=== PATIENT | male | born 1940 | race Caucasian/White ===

== ENCOUNTER 2017-04-13 01:17 | Emergency (ER) | payer MEDICARE, OTHER | END 2017-04-13 01:31 | disposition left against medical advice (07) | LOC: ERS 01:17 | DX: Z53.21 Procedure and treatment not carried out due to patient leaving prior to being seen by health care provider (principal) ==

== ENCOUNTER 2017-04-13 01:36 | Emergency (ER) | payer MEDICARE, OTHER | END 2017-04-13 02:38 | disposition home or self-care (01) | LOC: SCSER 01:36 | DX: J10.1 Influenza due to other identified influenza virus with other respiratory manifestations (principal); I10 Essential (primary) hypertension; G47.30 Sleep apnea, unspecified; Z79.899 Other long term (current) drug therapy | CPT/HCPCS: 87804; 99283 ==

== ENCOUNTER 2019-01-13 08:00 | Outpatient (CLI) | payer MEDICARE, OTHER ==
[2019-01-13 11:51] LABS: Hemoglobin 15.1 g/dL (14.0-18.0); Mean Corpuscular HGB CONC 31.8 g/dL (32.0-36.0); Mean Corpuscular Hemoglobin 29.5 pg (27.0-31.0); Mean Corpuscular Volume 92.6 fL (78.0-98.0); Mean Platelet Volume 8.8 fL (7.4-10.4); Platelet Count 267 thou/uL (130-400); RBC Distribution Width 13.9 % (11.5-14.5); Red Blood Cell (RBC) Count 5.14 mill/uL (4.70-6.10); White Blood Cell (WBC) Count 7.2 thou/uL (4.8-10.8)
[2019-01-13 12:16] LABS: Anion Gap 14 mmol/L (10-20); BUN (Urea Nitrogen) 19 mg/dL (8.4-25.7); Calc. Creatinine Clearance 0 mL/min (70-130); Calcium 9.5 mg/dL (7.8-10.44); Carbon Dioxide 29 mmol/L (23-31); Chloride 99 mmol/L (98-107); Estimated GFR-MDRD Greater than 90; Glucose 89 mg/dL (83-110); Potassium 3.9 mmol/L (3.5-5.1); Sodium 138 mmol/L (136-145)
== END 2019-01-13 08:01 | disposition home or self-care (01) ==
LOC: LABBT 08:00
PROVIDERS: ATTEND Orthopaedic Surgery
DX: Z01.818 Encounter for other preprocedural examination (principal); M65.4 Radial styloid tenosynovitis [de Quervain]
CPT/HCPCS: 80048; 85027; 93005; 93010

== ENCOUNTER 2019-01-14 13:11 | Day surgery (SDC) | payer MEDICARE, OTHER ==
[2019-01-13 10:32] VITALS: BMI 33.2
[2019-01-14] MEDS ORDERED: Fentanyl 100 MCG/2 ML VIAL ONE (18:07)
[2019-01-14] MEDS ORDERED: Neomycin-Polymyxin 1 ML AMP ONE (18:11)
[2019-01-14] MEDS ORDERED: Bupivacaine HCl 0.5%/Epinephrine 1:200,000/PF 30 ml Vial ONE (18:11)
--- NOTE | 2019-01-14 22:33 | OP ---
DATE OF PROCEDURE: 01/14/2019 PREOPERATIVE DIAGNOSES: 1. Right de Quervain tenosynovitis. 2. Left ring trigger finger. POSTOPERATIVE DIAGNOSES: 1. Right de Quervain tenosynovitis. 2. Left ring trigger finger with small ganglion cyst and early Dupuytren's. PROCEDURES PERFORMED: 1. Right de Quervain release. 2. Left ring finger release with excision of small ganglion cyst and removal of Dupuytren's tissue over the palm to the ring finger. ANESTHESIA: General. TECHNIQUE: The patient was given preoperative IV antibiotics, taken to operating room, placed in supine position. Satisfactory general anesthesia was performed. The right hand and wrist sterilely prepped and draped in usual fashion. After exsanguination, tourniquet at the right forearm was raised to 250 mmHg. A longitudinal incision was made over the first dorsal compartment over the wrist. The superficial radial nerve branches were located and retracted carefully all the way. The first dorsal compartment was located, entered with tenotomy scissors and the first dorsal compartment was released. The compartment was extremely tight with the 2 tendons. After the release, the tendons were completely released. The wound was then irrigated with antibiotic solution and closed using 3-0 Rapide. 10 mL of 0.5% Marcaine with epinephrine was utilized and a sterile dressing was applied. Tourniquet was released. Attention was then turned to the left hand and wrist, which was sterilely prepped and draped. After exsanguination, tourniquet at the left forearm was raised to 250 mmHg. There was early Dupuytren's scar tissue in the palm of the hand over the A1 primitivo level, so a longitudinal incision was made approximately 2 cm in length. Blunt dissection was made and the Dupuytren's scar tissue was excised. The underlying neurovascular structures were identified and left intact. The A1 primitivo was located and there was a small ganglion cyst also from the flexor tendon sheath. The A1 primitivo was divided and the small ganglion cyst was excised as well. The underlying flexor tendons were in good condition. The wound was copiously irrigated with antibiotic solution and closed using 3-0 Rapide. 10 mL of 0.5% Marcaine with epinephrine was used to infiltrate the area for postoperative analgesia. Sterile dressing was applied. Tourniquet was released. The patient was then awakened, extubated, and transferred to recovery room in stable condition. ESTIMATED BLOOD LOSS: None. COMPLICATIONS: None. TOURNIQUET TIME: On the right was 6 minutes, on the left was 9 minutes. DISCHARGE MEDICATION: Tylenol No. 3 one every 4-6 hours as needed for pain #40 with 1 refill. FOLLOWUP: Follow up in my office in 1 week. Job ID: [id number]
== END 2019-01-14 21:06 | disposition home or self-care (01) ==
LOC: SDC 13:11
PROVIDERS: ATTEND Orthopaedic Surgery
PROC: 0LN50ZZ Release Right Lower Arm and Wrist Tendon, Open Approach (ICD-10-PCS; principal; 2019-01-14)
PROC: 0LN80ZZ Release Left Hand Tendon, Open Approach (ICD-10-PCS; 2019-01-14)
DX: M65.4 Radial styloid tenosynovitis [de Quervain] (principal); M72.0 Palmar fascial fibromatosis [Dupuytren]; M65.342 Trigger finger, left ring finger
CPT/HCPCS: J0670; J0690; J3010

== ENCOUNTER 2019-03-28 18:23 | Emergency (ER) | payer MEDICARE, OTHER ==
[2019-03-28 18:54] LABS: #Eosinphils 0.3 thou/uL (0.0-0.7); #Lymphocytes 2.3 thou/uL (1.20-3.40); #Monocytes 0.9 thou/uL (0.11-0.59); #Neutrophils 5.3 thou/uL (1.40-6.50); %Basophils 0.5 % (0.0-1.0); %Eosinophils 3.9 % (0.0-10.0); %Lymphocytes 25.7 % (21.0-51.0); %Neutrophils 59.9 % (42.0-75.0); Mean Corpuscular HGB CONC 34.7 g/dL (32.0-36.0); Mean Corpuscular Hemoglobin 32.1 pg (27.0-31.0); Mean Corpuscular Volume 92.5 fL (78.0-98.0); Platelet Count 248 thou/uL (130-400); RBC Distribution Width 13.5 % (11.5-14.5); Red Blood Cell (RBC) Count 4.67 mill/uL (4.70-6.10); White Blood Cell (WBC) Count 8.8 thou/uL (4.8-10.8)
[2019-03-28 19:11] LABS: ALT (SGPT) 17 U/L (8-55); AST (SGOT) 19 U/L (5-34); Albumin 4.2 g/dL (3.4-4.8); Alkaline Phosphatase 92 U/L (40-110); Anion Gap 15 mmol/L (10-20); BUN (Urea Nitrogen) 16 mg/dL (8.4-25.7); Bilirubin, Total 0.3 mg/dL (0.2-1.2); Calc. Creatinine Clearance 0 mL/min (70-130); Calcium 9.3 mg/dL (7.8-10.44); Carbon Dioxide 27 mmol/L (23-31); Chloride 101 mmol/L (98-107); Estimated GFR-MDRD Greater than 90; Globulin 2.9 g/dL (2.4-3.5); Glucose 95 mg/dL (83-110); Protein, Total 7.1 g/dL (5.8-8.1); Sodium 139 mmol/L (136-145)
--- NOTE | 2019-03-28 19:27 | RAD ---
PA AND LATERAL VIEWS CHEST: Date: 03/28/2019 HISTORY: Flu, cough, cold, congestion. FINDINGS: Comparison made with exam of 08/05/05. The heart size is normal. The lungs are hypoexpanded. No lobar consolidation, pneumothoraces, or pleu ral effusions are seen. There are degenerative changes in the spine. IMPRESSION: No acute process. POS: [facility]
== END 2019-03-28 21:45 | disposition home or self-care (01) ==
LOC: ERS 18:23
DX: J06.9 Acute upper respiratory infection, unspecified (principal); I10 Essential (primary) hypertension; G47.30 Sleep apnea, unspecified; Z79.899 Other long term (current) drug therapy
CPT/HCPCS: 36415; 71046; 80053; 85025; 87804

== ENCOUNTER 2019-07-12 09:38 | Inpatient (IN) | payer MEDICARE, OTHER ==
[2019-07-12] MEDS ORDERED: Iopamidol 370 76% 100 ML VIAL ONE (10:14)
[2019-07-12 10:17] LABS: #Eosinphils 0.2 thou/uL (0.0-0.7); #Lymphocytes 1.3 thou/uL (1.20-3.40); #Monocytes 0.7 thou/uL (0.11-0.59); #Neutrophils 4.1 thou/uL (1.40-6.50); %Basophils 0.3 % (0.0-1.0); %Eosinophils 2.5 % (0.0-10.0); %Lymphocytes 20.3 % (21.0-51.0); %Monocytes 11.5 % (0.0-10.0); %Neutrophils 65.4 % (42.0-75.0); Hemoglobin 14.4 g/dL (14.0-18.0); Mean Corpuscular HGB CONC 31.5 g/dL (32.0-36.0); Mean Corpuscular Volume 91.9 fL (78.0-98.0); Mean Platelet Volume 8.4 fL (7.4-10.4); Platelet Count 281 thou/uL (130-400); RBC Distribution Width 13.1 % (11.5-14.5); Red Blood Cell (RBC) Count 4.96 mill/uL (4.70-6.10); White Blood Cell (WBC) Count 6.3 thou/uL (4.8-10.8)
[2019-07-12 10:39] LABS: ALT (SGPT) 16 U/L (8-55); AST (SGOT) 16 U/L (5-34); Albumin 4.3 g/dL (3.4-4.8); Alkaline Phosphatase 74 U/L (40-110); Anion Gap 12 mmol/L (10-20); BUN (Urea Nitrogen) 21 mg/dL (8.4-25.7); Bilirubin, Total 0.3 mg/dL (0.2-1.2); Calc. Creatinine Clearance 0 mL/min (70-130); Calcium 9.7 mg/dL (7.8-10.44); Carbon Dioxide 27 mmol/L (23-31); Chloride 100 mmol/L (98-107); Estimated GFR-MDRD Greater than 90; Globulin 2.9 g/dL (2.4-3.5); Glucose 112 mg/dL (83-110); Potassium 4.2 mmol/L (3.5-5.1); Protein, Total 7.2 g/dL (5.8-8.1); Sodium 135 mmol/L (136-145)
--- NOTE | 2019-07-12 11:03 | RAD ---
CHEST 1 VIEW: HISTORY: Cough and shortness of breath. COMPARISON: 03/28/2019. FINDINGS: Stable very poor inspiratory effort bilaterally with some minimal increased linear and interstitial m arkings in the bases probably related to chronic under inflation. The upper lung zones appear clear. Heart size is within normal limits. IMPRESSION: Stable chest with marked decreased aeration and chronic bibasilar parenchymal changes without new pro cess. POS: [facility]
[2019-07-12] MEDS ORDERED: Aspirin Chewable 81 MG TAB ONE (12:43)
--- NOTE | 2019-07-12 13:18 | CT ---
CTA OF THE THORAX UTILIZING IV CONTRAST AND PE PROTOCOL AND 3D REFORMATTED IMAGING: INDICATION: History of shortness of breath upon exertion; worsening over the last week with intermittent chest ti ghtness and a nonproductive cough. COMPARISON: None. FINDINGS: No central or segmental pulmonary embolus is present. There are areas of patchy subsegmental volume loss involving both lower lobes. No airspace consolidation is evident. No pleural effusion or pneum othorax is demonstrated. There are calcified lymph nodes within the left hilar region. There are va scular calcifications involving the thoracic aorta. There is bilateral male gynecomastia. Visualize d upper abdomen demonstrates cholecystectomy clips in the right upper quadrant. There is partially i mayank hyperdense lesion involving the superior pole of the left kidney measuring 3.3 cm. An addition al 3.4 cm hypodense lesion involving the superior pole of the left kidney that is partially imaged. There is slight prominence of both adrenal glands, some of which may be related to hypertrophy. This cannot be further characterized on the current examination. There is scattered degenerative and ost eoarthritic change. No acute osseous abnormality is evident. IMPRESSION: 1. No central or segmental pulmonary embolus demonstrated. 2. Nonspecific mild subsegmental volume loss involving both lower lobes. 3. Partially imaged lesions involving the superior pole left kidney. Followup renal ultrasound may be helpful for improved characterization. 4. Cholecystectomy. 5. Bilateral prominence of both adrenal glands is not well evaluated. A followup CT of the abdomen utilizing adrenal mass protocol may be helpful for improved characterization. POS: [facility]
[2019-07-12 14:10] LABS: Troponin I Less than 0.010 ng/mL (< 0.028)
[2019-07-12] MEDS ORDERED: Nitroglycerin 0.4 MG TAB (25 Tab Bottle) PO PRN (14:50)
[2019-07-12 15:08] VITALS: BMI 33.8
--- NOTE | 2019-07-12 16:54 | HP ---
PRIMARY CARE PHYSICIAN: Dr. Diego Barrera. CHIEF COMPLAINT: Dyspnea on exertion. HISTORY OF PRESENT ILLNESS: This is an 79-year-old man with a history of 1-1/2 weeks of dyspnea on exertion. The patient reports that he typically gets out of the gym and exercises regularly and does not have any problems with dyspnea. Then about a week and a half ago, he has been having significant dyspnea on exertion, especially when he goes up and down stairs. This is occasionally associated with central substernal chest burning pain. The symptoms relieved with rest. He has had a little bit of a cough on and off, but not productive. No fevers, no chills. No sore throat. He has had a little bit of allergic congestion of his sinuses and nose, which is a seasonal. He has no known Covid contacts. REVIEW OF SYSTEMS: CONSTITUTIONAL: See HPI. EYES: No double vision or blurred vision. ENT: See HPI. CARDIOVASCULAR: See HPI. No palpitations or racing heart. PULMONARY: See HPI. GASTROINTESTINAL: No abdominal pain. No nausea or vomiting. No diarrhea or constipation. GENITOURINARY: No dysuria or hematuria. MUSCULOSKELETAL: No muscle aches or joint pain. SKIN: No rashes or lesions. NEUROLOGIC: No numbness, tingling, or focal weakness. PAST MEDICAL HISTORY: Hypertension. PAST SURGICAL HISTORY: 1. Bladder cancer, resolved with surgery. 2. Gallbladder removal. 3. Left knee replacement. 4. Hand surgery for carpal tunnel syndrome. 5. Bilateral cataract surgery. 6. Sleep apnea. SOCIAL HISTORY: The patient is a former smoker, quit smoking 30 years ago. He drinks very rare alcohol. No illicit drugs. He is . His roommate's is his medical power of defense attorney, her name is Toshia Montano. FAMILY HISTORY: Dad had a stroke in his 50s and at 64. Mother had heart failure and at age of 74. ALLERGIES: NO KNOWN DRUG ALLERGIES. CURRENT MEDICATIONS: 1. Hydrochlorothiazide 25 mg daily. 2. Omeprazole 40 mg daily. 3. Norvasc 5 mg daily. 4. Singulair 10 mg daily. PHYSICAL EXAMINATION: VITAL SIGNS: Blood pressure 121/57, pulse 69, respirations 16, O2 saturation 95% on room air, temperature 98.3. GENERAL: This is a well-developed, obese white male, in no acute distress. HEENT: Pupils are equal, round, and reactive to light. Oropharynx clear without lesions, erythema, or exudate. NECK: Supple. No lymphadenopathy. No thyroid nodules or enlargement. HEART: Regular rate and rhythm. No murmurs, rubs, or gallops. LUNGS: Clear to auscultation bilaterally. No wheezes, crackles, or rhonchi. ABDOMEN: Soft, nontender to palpation. Normoactive bowel sounds. No hepatosplenomegaly or other masses. EXTREMITIES: No clubbing, cyanosis, or edema. SKIN: No rashes or lesions noted. NEUROLOGIC: The patient moves all extremities equally. No facial droop. PSYCHIATRIC: Alert and orient x3. Normal mood and affect. LABORATORY DATA: White blood cell count, hemoglobin, hematocrit, and platelet counts all normal. Complete metabolic panel is notable for a sodium of 135 and a glucose of 112. The rest was normal. Troponin is negative x2. Brain natriuretic peptide was negative at 90. Chest x-ray, I did review the chest x-ray done in the emergency room along with the radiologist's report. It does show decreased aeration and chronic bibasilar parenchymal changes, overall stable from previous chest x-rays. No acute cardiopulmonary process. CT scan with contrast done in the emergency room shows no evidence for pulmonary embolism. There is nonspecific mild subsegmental volume loss involving both lower lobes. A partially imaged lesion of the left kidney. Cholecystectomy, and a prominence of bilateral adrenal glands. ASSESSMENT: 1. Dyspnea and chest pain on exertion, concerning for angina. We will get a nuclear medicine stress test in the morning. We will also get an echocardiogram. 2. Hypertension, resume the patient's home medications. 3. Obstructive sleep apnea. 4. Gastrointestinal prophylaxis, continue patient's PPI. 5. Deep venous thrombosis prophylaxis, the patient on Lovenox while in the hospital. CODE STATUS: The patient is a full code. His medical decision maker is Toshia Montano. Job ID: [id number]
[2019-07-12 17:57] LABS: Troponin I Less than 0.010 ng/mL (< 0.028)
[2019-07-12] MEDS: Montelukast Sodium 10 mg Tablet PO SCH (20:35)
[2019-07-13 04:58] LABS: Cardiac Risk 4.1 (Less than 4.5)
--- NOTE | 2019-07-13 07:31 | PDOC.HOSPP ---
- Subjective Encounter Date: 07/13/19 Encounter Time: 11:30 Subjective: Patient with persistent MIRANDA. No chest pain. Just back from stress test. ECHO pending. Had trouble sleeping last night without his CPAP. No other complaints. - Objective Vital Signs & Weight: Vital Signs (12 hours) Temp Pulse Resp BP Pulse Ox 07/13/19 03:37 97.9 F 65 18 115/59 L 93 L 07/13/19 00:26 95 07/12/19 23:25 65 131/72 07/12/19 19:41 98.0 F 79 14 144/62 H 95 Weight Weight 231 lb 0.5 oz I&O: 07/12/19 07/13/19 07/14/19 06:59 06:59 06:59 Intake Total 990 Output Total 1275 Balance -285 Result Diagrams: 07/12/19 10:05 07/12/19 10:05 Hospitalist ROS - Review of Systems Constitutional: denies: fever, chills Respiratory: reports: SOB with excertion. denies: cough, shortness of breath Cardiovascular: denies: chest pain, palpitations Gastrointestinal: denies: nausea, vomiting, abdominal pain - Medication Medications: Active Medications Generic Name Dose Route Start Last Admin Trade Name Freq PRN Reason Stop Dose Admin Montelukast Sodium 10 mg 07/12/19 21:00 07/12/19 20:35 Singulair PO 10 mg HS DOT Administration - Exam General Appearance: NAD, awake alert ENT: moist mucosa Heart: RRR, no murmur, no gallops, no rubs Respiratory: CTAB, no wheezes, no rales, no ronchi Gastrointestinal: soft, non-tender, non-distended, normal bowel sounds Psychiatric: normal affect, normal behavior, A&O x 3 Hosp A/P (1) Dyspnea on exertion Code(s): R06.00 - DYSPNEA, UNSPECIFIED Status: Acute (2) Chest pain Code(s): R07.9 - CHEST PAIN, UNSPECIFIED Status: Acute (3) Hypertension Code(s): I10 - ESSENTIAL (PRIMARY) HYPERTENSION Status: Chronic Qualifiers: Hypertension type: essential hypertension Qualified Code(s): I10 - Essential (primary) hypertension (4) CHARLES (obstructive sleep apnea) Code(s): G47.33 - OBSTRUCTIVE SLEEP APNEA (ADULT) (PEDIATRIC) Status: Chronic - Plan Stress test today ECHO pending Lipid profile ok DVT proph: Lovenox GI proph: Protonix
[2019-07-13] MEDS ORDERED: Enoxaparin Sodium 40 MG/0.4 ML SYRINGE SC SCH (09:00)
[2019-07-13] MEDS ORDERED: ADENOSINE 60 MG/20 ML VIAL ONE (09:55)
--- NOTE | 2019-07-13 13:31 | NM ---
EXAM: NM Cardiac Stress W EF WF PROVIDED CLINICAL HISTORY: Dyspnea on exertion and chest pain while taking stairs. COMPARISON: None FINDINGS: There is diminished uptake of radiotracer seen in the inferolateral left ventricular wall and at the apex with suggestion of mild reversibility on resting acquisition compared to the stress acquisition. Quantitative analysis also demonstrates reversible defects in these regions. Gated image s show normal ventricular wall motion with mildly diminished thickening in the inferior left ventricular wall. The calculated left ventricular ejection fraction is 50%. IMPRESSION: 1. Abnormal myocardial perfusion study with findings suggestive of ischemia involving the inferolater al left ventricular wall and at the apex. 2. LVEF of 50%.
[2019-07-13] MEDS: Amlodipine 5 MG TAB PO SCH (15:14)
[2019-07-13] MEDS: Aspirin 325 mg Enteric Coated Tablet PO SCH (15:14)
[2019-07-13] MEDS: Hydrochlorothiazide 25 MG TAB PO SCH (15:14)
--- NOTE | 2019-07-13 15:37 | CON ---
DATE OF CONSULTATION: 07/13/2019 REASON FOR CONSULTATION: Abnormal stress study and shortness of breath. Dr. Diego Barrera is his primary provider. HISTORY OF PRESENT ILLNESS: Mr. Lee is a very pleasant 79-year-old gentleman with previous history of tobacco use, who recently presented with acute-onset shortness of breath. This occurred in the last several days. No chest pain or pressure. He does have risk factors for underlying coronary artery disease. He underwent a noninvasive stress study and it was felt to be positive for ischemia. PAST MEDICAL HISTORY: Hypertension, cholecystectomy, knee surgery, hand surgery, sleep apnea. CURRENT MEDICATIONS: Include hydrochlorothiazide, omeprazole, Norvasc, Singulair. ALLERGIES: NONE. FAMILY HISTORY: Positive for CAD. REVIEW OF SYSTEMS: A 10-point review of systems is reviewed and is as above, otherwise negative. PHYSICAL EXAMINATION: GENERAL: Patient is a pleasant male, who is in no acute distress. The patient appears their stated age. VITAL SIGNS: Blood pressure 142/74, pulse 68, temp 98.1. NEUROLOGIC: The patient is alert and oriented x3 with no focal neurologic deficits. HEENT: Sclerae without icterus. Mouth has moist mucous membranes with normal pallor. NECK: No JVD. Carotid upstroke brisk. No bruits bilaterally. LUNGS: Clear to auscultation with unlabored respirations. BACK: No scoliosis or kyphosis. CARDIAC: Regular rate and rhythm with normal S1 and S2. No S3 or S4 noted. No significant rubs, murmurs, thrills, or gallops noted throughout the precordium. PMI is not displaced. There is no parasternal heave. ABDOMEN: Soft, nontender, nondistended. No peritoneal signs present. No hepatosplenomegaly. No abnormal striae. EXTREMITIES: 2+ femoral and 2+ dorsalis pedis pulses. No cyanosis, clubbing, or edema. SKIN: No gross abnormalities. PERTINENT LABS: Stable. Noninvasive stress study; LVEF 50%, ischemia present in the inferolateral wall and apex. IMPRESSION: 1. Acute-onset shortness of breath. 2. Abnormal stress study. RECOMMENDATIONS: I discussed several options with Mr. Lee. Discussed medical therapy, risk of proceeding with coronary angiography. After discussing risks and benefits of both, he opted to proceed with coronary angiography. I discussed the procedure in full detail with Mr. Lee and risks included but not limited to the following. I discussed the procedure in full detail with the patient. The risks of the procedure were also discussed. The risks of the procedure include but are not limited to the following: , stroke, [place], need for emergency surgery, loss of limb, bleeding, and infection, as well as a reaction to the dye causing kidney failure and needing long-term dialysis. I also discussed the risks of PCI to include all of the above including coronary dissection and perforation in addition to acute stent thrombosis and restenosis. All questions about the procedure were answered. Given the above, the patient agreed to proceed with coronary angiography and possible PCI. All questions were answered. I also discussed drug-coated versus nondrug-coated stent placement. There were no contraindications and we will proceed if needed. Further recommendations pending the above. Job ID: [id number]
[2019-07-13] MEDS ORDERED: Communication Order-Pharmacy FS SCH (18:15)
[2019-07-13] MEDS: Montelukast Sodium 10 mg Tablet PO SCH (21:20)
[2019-07-13] MEDS: ALPRAZolam 0.5 MG TAB PO SCH (21:20)
[2019-07-13] MEDS: Sodium Chloride 0.9% 1,000 ML IV SCH (21:20)
[2019-07-14] MEDS: Fish Oil 1,000 MG CAP PO SCH (05:50)
[2019-07-14] MEDS: Amlodipine 5 MG TAB PO SCH (05:50)
[2019-07-14] MEDS: Hydrochlorothiazide 25 MG TAB PO SCH (05:50)
[2019-07-14] MEDS: Aspirin 325 mg Enteric Coated Tablet PO SCH (05:50)
[2019-07-14] MEDS: Multivit, Therapeutic 1 TAB PO SCH (05:50)
[2019-07-14] MEDS: Sodium Chloride 0.9% 1,000 ML IV SCH ×4 (05:55→21:15)
--- NOTE | 2019-07-14 07:36 | PDOC.HOSPP ---
- Subjective Encounter Date: 07/14/19 Encounter Time: 10:30 Subjective: Patient with continued MIRANDA. No chest pain. Awaiting catheterization. - Objective Vital Signs & Weight: Vital Signs (12 hours) Temp Pulse Resp BP Pulse Ox 07/14/19 07:29 97.5 F L 66 16 138/77 93 L 07/14/19 05:50 68 07/14/19 03:15 97.7 F 68 18 130/70 94 L 07/14/19 01:12 94 L Weight Weight 230 lb 5.353 oz I&O: 07/13/19 07/14/19 07/15/19 06:59 06:59 06:59 Intake Total 990 540 Output Total 1275 420 Balance -285 120 Result Diagrams: 07/12/19 10:05 07/12/19 10:05 Hospitalist ROS - Review of Systems Constitutional: denies: fever, chills Respiratory: reports: SOB with excertion. denies: cough, shortness of breath Cardiovascular: denies: chest pain, palpitations Gastrointestinal: denies: nausea, vomiting, abdominal pain - Medication Medications: Active Medications Generic Name Dose Route Start Last Admin Trade Name Freq PRN Reason Stop Dose Admin Alprazolam 0.5 mg 07/13/19 21:00 07/13/19 21:20 Xanax PO 0.5 mg HS DOT Administration Amlodipine Besylate 5 mg 07/13/19 09:00 07/14/19 05:50 Norvasc PO 5 mg DAILY DOT Administration Aspirin 325 mg 07/13/19 09:00 07/14/19 05:50 Ecotrin PO 325 mg DAILY DOT Administration Fish Oil 1,000 mg 07/14/19 09:00 07/14/19 05:50 Fish Oil PO 1,000 mg DAILY DOT Administration Hydrochlorothiazide 25 mg 07/13/19 09:00 07/14/19 05:50 Hydrochlorothiazide PO 25 mg DAILY DOT Administration Sodium Chloride 1,000 mls @ 100 mls/hr 07/13/19 18:15 07/14/19 05:55 Normal Saline 0.9% IV 1,000 mls .Q10H DOT Administration Montelukast Sodium 10 mg 07/12/19 21:00 07/13/19 21:20 Singulair PO 10 mg HS DOT Administration Multivitamins 1 tab 07/14/19 09:00 07/14/19 05:50 Theragran PO 1 tab DAILY DOT Administration Pantoprazole Sodium 40 mg 07/13/19 09:00 07/14/19 05:50 Protonix PO 40 mg DAILY DOT Administration - Exam General Appearance: NAD ENT: moist mucosa Heart: RRR, no murmur, no gallops, no rubs Respiratory: CTAB, no wheezes, no rales, no ronchi Gastrointestinal: soft, non-tender, non-distended, normal bowel sounds Psychiatric: normal affect, normal behavior, A&O x 3 Hosp A/P (1) Dyspnea on exertion Code(s): R06.00 - DYSPNEA, UNSPECIFIED Status: Acute (2) Chest pain Code(s): R07.9 - CHEST PAIN, UNSPECIFIED Status: Resolved (3) Hypertension Code(s): I10 - ESSENTIAL (PRIMARY) HYPERTENSION Status: Chronic Qualifiers: Hypertension type: essential hypertension Qualified Code(s): I10 - Essential (primary) hypertension (4) CHARLES (obstructive sleep apnea) Code(s): G47.33 - OBSTRUCTIVE SLEEP APNEA (ADULT) (PEDIATRIC) Status: Chronic - Plan Stress test abnormal- Dr. Pepe to cath today ECHO with normal EF, diastolic dysfunction Lipid profile ok DVT proph: Lovenox GI proph: Protonix
[2019-07-14] MEDS ORDERED: Iopamidol 370 76% 50 ML VIAL FS ONE (09:01)
[2019-07-14] MEDS ORDERED: Iopamidol 370 76% 100 ML VIAL ONE (09:01)
[2019-07-14] MEDS ORDERED: Fentanyl 100 MCG/2 ML VIAL ONE (13:43)
[2019-07-14] MEDS ORDERED: Midazolam HCl 2 mg/2 ml Vial ONE (13:44)
[2019-07-14] MEDS ORDERED: Heparin 10,000 UNITS/1 ML VIAL ONE (14:05)
[2019-07-14] MEDS ORDERED: Adenosine 6 MG/2 ML VIAL ONE (14:05)
[2019-07-14] MEDS ORDERED: Verapamil 5 MG/2 ML VIAL ONE (14:05)
[2019-07-14] MEDS ORDERED: Nitroglycerin 100MG/250ML BOT 250 ML ONE (14:06)
[2019-07-14] MEDS ORDERED: Clopidogrel Bisulfate 300 MG TAB ONE (14:22)
[2019-07-14] MEDS: ALPRAZolam 0.5 MG TAB PO SCH (21:14)
[2019-07-14] MEDS: Montelukast Sodium 10 mg Tablet PO SCH (21:14)
[2019-07-15 03:10] VITALS: TEMP 97.6
[2019-07-15 04:27] LABS: #Eosinphils 0.2 thou/uL (0.0-0.7); #Lymphocytes 1.6 thou/uL (1.20-3.40); #Monocytes 0.9 thou/uL (0.11-0.59); #Neutrophils 5.3 thou/uL (1.40-6.50); %Basophils 0.5 % (0.0-1.0); %Lymphocytes 20.1 % (21.0-51.0); %Monocytes 11.2 % (0.0-10.0); %Neutrophils 65.3 % (42.0-75.0); Hemoglobin 13.8 g/dL (14.0-18.0); Mean Corpuscular HGB CONC 31.9 g/dL (32.0-36.0); Mean Corpuscular Hemoglobin 29.6 pg (27.0-31.0); Mean Corpuscular Volume 92.8 fL (78.0-98.0); Mean Platelet Volume 8.8 fL (7.4-10.4); Platelet Count 248 thou/uL (130-400); RBC Distribution Width 12.9 % (11.5-14.5); Red Blood Cell (RBC) Count 4.66 mill/uL (4.70-6.10); White Blood Cell (WBC) Count 8.1 thou/uL (4.8-10.8)
[2019-07-15 04:47] LABS: ALT (SGPT) 15 U/L (8-55); AST (SGOT) 17 U/L (5-34); Albumin 3.7 g/dL (3.4-4.8); Alkaline Phosphatase 69 U/L (40-110); Anion Gap 13 mmol/L (10-20); BUN (Urea Nitrogen) 11 mg/dL (8.4-25.7); Bilirubin, Total 0.6 mg/dL (0.2-1.2); Calc. Creatinine Clearance 128 mL/min (70-130); Calcium 8.6 mg/dL (7.8-10.44); Carbon Dioxide 24 mmol/L (23-31); Chloride 103 mmol/L (98-107); Estimated GFR-MDRD Greater than 90; Globulin 2.7 g/dL (2.4-3.5); Glucose 101 mg/dL (83-110); Potassium 3.7 mmol/L (3.5-5.1); Protein, Total 6.4 g/dL (5.8-8.1); Sodium 136 mmol/L (136-145)
[2019-07-15 07:50] VITALS: BP 127/61
[2019-07-15] MEDS: Fish Oil 1,000 MG CAP PO SCH (08:41)
[2019-07-15] MEDS: Amlodipine 5 MG TAB PO SCH (08:41)
[2019-07-15] MEDS: Hydrochlorothiazide 25 MG TAB PO SCH (08:41)
[2019-07-15] MEDS: Multivit, Therapeutic 1 TAB PO SCH (08:42)
[2019-07-15] MEDS ORDERED: Clopidogrel Bisulfate 75 MG TAB PO SCH (09:00)
[2019-07-15] MEDS ORDERED: Aspirin Chewable 81 MG TAB PO SCH (09:00)
--- NOTE | 2019-07-15 20:19 | PRG ---
DATE OF SERVICE: 07/15/2019 SUBJECTIVE: Mr. Lee is doing well. No current complaints. OBJECTIVE: VITAL SIGNS: Blood pressure 120/70, pulse 70, respirations 20. LUNGS: Clear to auscultation. HEART: Regular rate and rhythm. ABDOMEN: Soft, nontender, nondistended. EXTREMITIES: No edema. IMPRESSION: 1. Shortness of breath. 2. Severe coronary artery disease, status post stent placement. RECOMMENDATIONS: The patient is currently doing well. Continue aspirin 81 q.a.m., Plavix 75 daily, statin therapy, and beta nadir therapy. Plan is to follow up as an outpatient in 1 week. Job ID: [id number]
--- NOTE | 2019-07-16 00:21 | DIS ---
DATE OF ADMISSION: 07/14/2019 DATE OF DISCHARGE: 07/15/2019 DISCHARGE DIAGNOSES: 1. Coronary artery disease, status post drug-eluting stent to circumflex, 07/14/2019. 2. Angina secondary to #1. 3. Hypertension, stable. 4. Obstructive sleep apnea, stable. 5. Hyperlipidemia. CONSULTATIONS: Dr. Pepe with Cardiology Service. PERTINENT LABORATORY AND X-RAY FINDINGS: Complete metabolic profile within normal limits. BNP 90.3. Troponin I negative x3. Total cholesterol 184, triglycerides 86, HDL 45, LDL 122. CBC within normal limits. Portable chest x-ray dated 07/12/2019, showed decreased aeration and chronic bibasilar parenchymal changes without acute process. CT angiogram of the chest dated 07/12/2019, showed no evidence for pulmonary embolus. Mild subsegmental volume loss of bilateral lower lobes. Cardiolite stress test dated 07/13/2019, showed diminished uptake of radiotracer in the inferolateral left ventricular wall and the apex suggestive of mild reversible ischemia. Calculated ejection fraction of 50%. 2D transthoracic echocardiogram dated 07/13/2019, showed ejection fraction of 50% to 55%. Technically limited study. Diastolic dysfunction noted. Moderate left atrial enlargement. HOSPITAL COURSE: The patient initially was admitted after presenting with dyspnea on exertion, undergoing serial cardiac biomarkers which were negative x3. The patient underwent a Cardiolite stress testing showing evidence of mild reversible ischemia in the inferolateral wall of the left ventricle and apex. The patient was evaluated by the Cardiology Service, undergoing 2D transthoracic echocardiogram and with recommendations to proceed with cardiac catheterization. The patient underwent the cardiac catheterization on 07/14/2019, receiving drug-eluting stent to the circumflex. The patient was continued on dual anti-platelet therapy and overall clinically stabilized on the telemetry unit. Vital signs remained stable and the patient was afebrile. I have examined the patient at the time of discharge and discussed followup instructions. The patient verbalizes understanding and in agreement, ready for discharge on 07/15/2019. DISCHARGE MEDICATIONS: 1. Alprazolam 0.5 mg p.o. at bedtime. 2. Amlodipine 5 mg p.o. daily. 3. Astelin one spray in each naris daily. 4. [place]-3 fatty acids 1200 mg p.o. daily. 5. Hydrochlorothiazide 25 mg p.o. daily. 6. Singulair 10 mg p.o. at bedtime. 7. Multivitamin 1 tablet p.o. daily. 8. Enteric-coated aspirin 81 mg p.o. daily. 9. Plavix 75 mg p.o. daily. 10. Lipitor 40 mg p.o. at bedtime. FOLLOWUP: The patient may follow up with his primary care provider, Dr. Diego Barrera. The patient will follow up with Dr. David Pepe. CONDITION ON DISCHARGE: Stable. ACTIVITY: Ad vivienne. DIET: Heart healthy. CODE STATUS: Full. DISPOSITION: To home, 07/15/2019. Job ID: [id number]
--- NOTE | 2019-07-16 06:56 | EKG ---
Test Reason : POST STENT Blood Pressure : / mmHG Vent. Rate : 058 BPM Atrial Rate : 058 BPM P-R Int : 188 ms QRS Dur : 088 ms QT Int : 406 ms P-R-T Axes : 047 -10 063 degrees QTc Int : 398 ms Sinus bradycardia Otherwise normal ECG When compared with ECG of 12-JUL-2019 09:56, (Unconfirmed) No significant change was found Confirmed by DR. Lina THOMPSON ([id number]) on 07/16/2019 6:55:26 AM Referred By: JORGE Confirmed By:DR. Lina THOMPSON
--- NOTE | 2019-07-16 06:56 | EKG ---
Test Reason : Blood Pressure : / mmHG Vent. Rate : 071 BPM Atrial Rate : 071 BPM P-R Int : 188 ms QRS Dur : 084 ms QT Int : 384 ms P-R-T Axes : 008 -03 065 degrees QTc Int : 417 ms Normal sinus rhythm Normal ECG When compared with ECG of 14-JUL-2019 14:44, (Unconfirmed) No significant change was found Confirmed by DR. Lina THOMPSON ([id number]) on 07/16/2019 6:56:10 AM Referred By: JORGE Confirmed By:DR. Lina THOMPSON
--- NOTE | 2019-07-16 15:22 | EKG ---
Test Reason : Blood Pressure : / mmHG Vent. Rate : 065 BPM Atrial Rate : 065 BPM P-R Int : 176 ms QRS Dur : 078 ms QT Int : 362 ms P-R-T Axes : 097 -07 031 degrees QTc Int : 376 ms Normal sinus rhythm Normal ECG Confirmed by KIESHA CARUSO DO ([id number]), editor magazine DANIEL HOLGUIN ([id number]) on 07/16/2019 3:21:53 PM Referred By: Confirmed By:KIESHA CARUSO DO
== END 2019-07-15 10:45 | disposition home or self-care (01) | DRG 247 ==
LOC: ERS 09:38 → 2NO 13:20 → OBSVTOIN 07-14 16:45
PROVIDERS: ADMIT Internal Medicine; ATTEND Family Medicine
PROC: 027034Z Dilation of Coronary Artery, One Artery with Drug-eluting Intraluminal Device, Percutaneous Approach (ICD-10-PCS; principal; 2019-07-14)
DX: I25.119 Atherosclerotic heart disease of native coronary artery with unspecified angina pectoris (principal); I10 Essential (primary) hypertension; G47.33 Obstructive sleep apnea (adult) (pediatric); E78.5 Hyperlipidemia, unspecified; Z96.652 Presence of left artificial knee joint; Z90.49 Acquired absence of other specified parts of digestive tract; Z98.42 Cataract extraction status, left eye; Z98.41 Cataract extraction status, right eye; Z87.891 Personal history of nicotine dependence
CPT/HCPCS: 36415; 71045; 71275; 76942; 78452; 80053; 80061; 83880; 84484; 85025; 85347; 92928; 93005; 93010; 93017; 93306; 93454; 93798; 94760; 99152; A9500; C1725; C1769; C1874; C1887; C9600; J0153; J1644; J1650; J2250; J3010; Q9967

== ENCOUNTER 2020-02-10 06:39 | Outpatient (CLI) | payer MEDICARE, OTHER ==
[2020-02-10 13:06] LABS: Bilirubin Neg (Negative); Blood, Urine Negative (Negative); Clarity Clear (Clear); Glucose, Urine (Dipstick) Normal (Negative); Ketone, Urine Negative (Negative); Leukocyte 100 (Negative); Nitrite Negative (Negative); Protein, Urine (Dipstick) Negative (Neg-Trace); Urobilinogen Normal mg/dL (Less than 2); pH, Urine 6.5 (5.0-9.0)
[2020-02-10 13:12] LABS: Hemoglobin 16.1 g/dL (14.0-18.0); Mean Corpuscular HGB CONC 33.8 G/DL (32.0-36.0); Mean Corpuscular Volume 100.8 fl (80.0-100.0); Mean Platelet Volume 11.5 fl (7.4-10.4); Platelet Count 259 10x3/uL (130-400); RBC Distribution Width 15.6 % (11.5-14.5); Red Blood Cell (RBC) Count 4.73 10x6/uL (4.40-5.80); White Blood Cell (WBC) Count 6.6 10x3/uL (4.5-11.0)
[2020-02-10 13:23] LABS: Anion Gap 19 mmol/L (10-20); BUN (Urea Nitrogen) 13 mg/dL (8.4-25.7); Calc. Creatinine Clearance 0 mL/min (70-130); Calcium 9.1 mg/dL (7.8-10.44); Carbon Dioxide 25 mmol/L (23-31); Chloride 96 mmol/L (98-107); Estimated GFR-MDRD Greater than 90; Glucose 86 mg/dL (83-110); Potassium 4.7 mmol/L (3.5-5.1); Sodium 135 mmol/L (136-145)
[2020-02-10 13:29] LABS: PTT 32.3 sec (22.0-33.0); Prothrombin Time 10.5 sec (9.5-12.1)
[2020-02-10 13:43] LABS: Bacteria/HPF Rare-Few HPF (None Seen); RBC/HPF 0-3 HPF (0-3); WBC/HPF 21-50 HPF (0-3)
[2020-02-10 22:56] LABS: SARS-CoV-2 MS2 Positive; SARS-CoV-2 N Gene Negative; SARS-CoV-2 S Gene Negative; SARS-CoV-2 by NAA Not Detected (NotDetected); SARS-CoV-2 orf1ab Negative
== END 2020-02-10 06:40 | disposition home or self-care (01) ==
LOC: LABBT 06:39
PROVIDERS: ATTEND Urology
DX: Z01.818 Encounter for other preprocedural examination (principal); N28.89 Other specified disorders of kidney and ureter; Z20.828 Contact with and (suspected) exposure to other viral communicable diseases
CPT/HCPCS: 80048; 81001; 85027; 85610; 85730; 87086; 93005; U0003; 87077; 87635; 93010

== ENCOUNTER 2020-02-10 10:15 | Inpatient (IN) | payer MEDICARE, OTHER ==
[2020-02-14 10:52] VITALS: BMI 31.8
[2020-02-22] MEDS ORDERED: Bupivacaine 0.25% HCL 30 ML VIAL ONE ×2 (08:28→10:05)
[2020-02-22] MEDS ORDERED: Fentanyl 100 MCG/2 ML VIAL ONE ×3 (08:29→13:13)
[2020-02-22] MEDS ORDERED: hydrALAZINE 20 MG/ML VIAL SLOW IVP PRN (10:45)
[2020-02-22] MEDS ORDERED: Ondansetron PF 4 MG/2 ML Vial IVP PRN (10:45)
[2020-02-22] MEDS ORDERED: diphenhydrAMINE 50 MG/ML VIAL IVP PRN (10:45)
[2020-02-22] MEDS ORDERED: Zolpidem Tartrate 5 MG TAB PO PRN (10:45)
[2020-02-22] MEDS ORDERED: Morphine 4 MG/ML VIAL SLOW IVP PRN (10:45)
[2020-02-22] MEDS ORDERED: Lidocaine 1% PF 5 ML VIAL ONE (12:32)
[2020-02-22] MEDS ORDERED: PHENYLEPHRINE-NS 100 MCG/ML 10 ML SYRINGE ONE (12:32)
[2020-02-22] MEDS ORDERED: ePHEDrine 50 MG/ML VIAL ONE (12:32)
[2020-02-22] MEDS ORDERED: Rocuronium Bromide 10 MG/ML (10ML VIAL) ONE (12:32)
[2020-02-22] MEDS ORDERED: PROPOFOL 200 MG/20 ML VIAL ONE (12:32)
[2020-02-22] MEDS ORDERED: Glycopyrrolate 0.2 MG/ML 5 ML SYRINGE ONE (12:32)
[2020-02-22] MEDS ORDERED: Ondansetron PF 4 MG/2 ML Vial ONE (12:32)
[2020-02-22] MEDS ORDERED: Promethazine HCl 25 MG/ML VIAL SLOW IVP PRN (14:10)
[2020-02-22] MEDS ORDERED: Ondansetron HCl/PF 4 MG/2 ML Vial IVP PRN (14:10)
[2020-02-22] MEDS ORDERED: Promethazine HCl 25 MG/ML VIAL IM PRN (14:10)
[2020-02-22] MEDS: Sodium Chloride 0.9% 1,000 ML IV SCH ×2 (17:50→21:27)
[2020-02-22] MEDS: ALPRAZolam 0.5 MG TAB PO SCH (21:27)
[2020-02-22] MEDS: Docusate 100 MG CAP PO SCH (21:27)
[2020-02-23] MEDS: Sodium Chloride 0.9% 1,000 ML IV SCH ×2 (06:27→17:38)
--- NOTE | 2020-02-23 07:10 | OP ---
DATE OF PROCEDURE: 02/22/2020 PREOPERATIVE DIAGNOSIS: Left renal mass. POSTOPERATIVE DIAGNOSIS: Left renal mass. PROCEDURE PERFORMED: Left hand assist laparoscopic nephrectomy. ANESTHESIA: General and 60 mL of 0.25% Marcaine, local anesthetic. SPECIMENS: Left kidney. ESTIMATED BLOOD LOSS: 200 mL. COMPLICATIONS: None. DESCRIPTION OF PROCEDURE: After informed consent, the patient was taken to the operating room, transferred to the table on his own power. Anesthesia was established. Time-out was performed, showing the correct patient, site, and procedure. Preoperative antibiotics were administered. He was prepped and draped in a modified right lateral decubitus position, taking care to pad all pressure points, protect his axilla. I began by making a midline incision above the umbilicus. This was carried down to fascia with electrocautery. Fascia was then carefully entered, noting some adhesions at the inferior aspect of the incision of the omentum to a previous low midline incision. The peritoneum was then opened to the length of the incision and the abdomen inspected noting no significant abnormalities or intraabdominal injuries from access. The GelPort was placed and insufflation achieved. Two 12 mm trocars were placed, one in the left lower quadrant and one in the left upper quadrant. The ligature was used to take down the colon and the splenic flexure. The colon was deflected medially. The lateral edge of the kidney was then developed allowing access underneath the gonadal and ureter. These were controlled with the ligature. I then traced up to the renal hilum and created a window above and below, allowing passage of a 45 mm vascular load stapler which controlled the renal hilum. A second load was then used to take down the superior medial attachments to the adrenal gland. The kidney was then completely mobilized. The renal fossa was inspected noting no active bleeding. Insufflation was stopped, trocars removed and the GelPort also removed. The incision had to be extended somewhat to allow removal of the kidney which was passed as specimen. The abdomen was then inspected, noting no injuries or active bleeding. The fascia of the GelPort site was closed with 0 PDS suture in a running fashion. I then closed subcutaneous tissues with 2-0 Vicryl before closing all skin incisions with running subcuticular Monocryl. The wounds were then dressed with Dermabond. He was awoken from anesthesia, transferred back to his hospital bed and taken to PACU in stable condition, where he will be admitted to the floor. Job ID: [id number]
[2020-02-23 07:34] LABS: #Lymphocytes 0.8 thou/uL (1.20-3.40); #Monocytes 1.5 thou/uL (0.11-0.59); #Neutrophils 11.1 thou/uL (1.40-6.50); %Basophils 0.1 % (0.0-1.0); %Eosinophils 0.1 % (0.0-10.0); %Lymphocytes 5.6 % (21.0-51.0); %Monocytes 11.2 % (0.0-10.0); %Neutrophils 83.1 % (42.0-75.0); Hemoglobin 13.7 g/dL (14.0-18.0); Mean Corpuscular HGB CONC 32.9 g/dL (32.0-36.0); Mean Corpuscular Hemoglobin 34.5 pg (27.0-31.0); Platelet Count 227 thou/uL (130-400); RBC Distribution Width 13.9 % (11.5-14.5); Red Blood Cell (RBC) Count 3.96 mill/uL (4.70-6.10); White Blood Cell (WBC) Count 13.3 thou/uL (4.8-10.8)
[2020-02-23 07:46] LABS: Anion Gap 13 mmol/L (10-20); BUN (Urea Nitrogen) 14 mg/dL (8.4-25.7); Calc. Creatinine Clearance 77 mL/min (70-130); Calcium 8.5 mg/dL (7.8-10.44); Carbon Dioxide 26 mmol/L (23-31); Chloride 100 mmol/L (98-107); Glucose 129 mg/dL (83-110); Potassium 4.6 mmol/L (3.5-5.1); Sodium 134 mmol/L (136-145)
[2020-02-23] MEDS: Amlodipine 5 MG TAB PO SCH (08:58)
[2020-02-23] MEDS: Aspirin Chewable 81 MG TAB PO SCH (08:58)
[2020-02-23] MEDS: Docusate 100 MG CAP PO SCH ×2 (08:58→22:57)
[2020-02-23] MEDS: HYDROcodone/Acetaminophen 5/325 mg Tablet PO PRN ×3 (10:01→17:51)
[2020-02-23] MEDS ORDERED: Calcium Carbonate 500 MG ChewTAB PO PRN (12:57)
[2020-02-23] MEDS: Simethicone Chewable 80 MG TAB PO PRN (13:05)
--- NOTE | 2020-02-23 13:16 | PRG ---
DATE OF SERVICE: 02/23/2020 SUBJECTIVE: No acute events overnight. Pain control was much improved through the morning. He does report gas pains and slight indigestion. He has been walking in the halls and tolerating oral intake. PHYSICAL EXAMINATION: GENERAL: No acute distress. Unlabored breathing. HEART: Regular rate and rhythm. ABDOMEN: Soft, appropriately tender, and nondistended. Garduno catheter in good position, draining clear urine. EXTREMITIES: No peripheral edema. LABORATORY DATA: Reviewed. White count 13, hemoglobin 13.7. Creatinine 1.05. ASSESSMENT AND PLAN: 1. Postoperative day #1, left hand assist laparoscopic nephrectomy. 2. Continue out of bed, ambulate, regular diet, pain control, DVT prophylaxis, incentive spirometry. We will attempt void trial tomorrow with discharge planned afterwards. Job ID: [id number]
[2020-02-23] MEDS ORDERED: ALPRAZolam 1 MG TAB PO SCH (23:00)
[2020-02-24] MEDS: ALPRAZolam 0.5 MG TAB PO SCH (00:13)
[2020-02-24] MEDS: HYDROcodone/Acetaminophen 5/325 mg Tablet PO PRN ×2 (05:24→10:48)
[2020-02-24] MEDS: Sodium Chloride 0.9% 1,000 ML IV SCH ×2 (05:27→06:56)
--- NOTE | 2020-02-24 08:07 | RAD ---
Chest AP view INDICATION: Postop day 2 with productive yellow sputum COMPARISON: Chest radiograph dated January 28, 2020 FINDINGS: Lungs: Low lung volumes and subsegmental atelectasis involving both lung bases Cardiac silhouette: The cardiomediastinal silhouette appears within normal limits. Pulmonary vasculature: Normal Pleural spaces: No pleural effusion or pneumothorax is demonstrated. Upper abdomen: There are gas-filled loops of colon and small bowel within the upper abdomen. There i s pneumoperitoneum overlying the right hemidiaphragm. Osseous structures: No acute osseous abnormality. Additional findings: None. IMPRESSION: 1. Low lung volumes. Subsegmental atelectasis involving both lung bases. No consolidation demonstrate d. 2. Pneumoperitoneum consistent with patient's history of being postop day 2 from a left nephrectomy. 3. Gas-filled loops of colon and small bowel within the upper abdomen suspicious for postop ileus.
[2020-02-24] MEDS: Docusate 100 MG CAP PO SCH (08:28)
[2020-02-24] MEDS: Simethicone Chewable 80 MG TAB PO PRN (08:28)
[2020-02-24] MEDS: Amlodipine 5 MG TAB PO SCH (08:28)
[2020-02-24] MEDS: Aspirin Chewable 81 MG TAB PO SCH (08:29)
[2020-02-24 11:55] VITALS: BP 133/63; TEMP 97.5
[2020-02-24] MEDS ORDERED: ALPRAZolam 1 MG TAB PO SCH (21:00)
--- NOTE | 2020-02-25 07:04 | PQF ---
CLINICAL DOCUMENTATION CLARIFICATION FORM: Dear : Kishore Barahona Date / Time: 02/25/20 0703 Please exercise your independent, professional judgment in responding to the clarification form. 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 Thank You. To be completed by CDI/Coding staff for physician review: Present Clinical Indicators - Signs / Symptoms / Labs Results and Location in Medical Record [X] Oncocytoma with extensive cystic changes Pathology report 02/21 [X] All margins negative for tumor Pathology report 02/21 [X] Left renal Mass Operative report 02/21 Dr Barahona Present Risk Factors Results and Location in Medical Record [X] 79 year-old Male Operative report 02/21 Dr Barahona [X] Former smoker Anesthesia [X] HTN Anesthesia Present Treatments Results and Location in Medical Record [X] Left hand assists laparoscopic nephectomy Operative report 02/21 Dr Barahona CDS/Channel Executive Signature: Liudmila Jennifer Teresa Phone #: ext [phone] Date/Time: 02/25/2020 0703 This is a permanent part of the Medical Record [facility]
== END 2020-02-24 14:12 | disposition home or self-care (01) | DRG 658 ==
LOC: EDSTATUS 02-15 10:15 → SURG A 02-22 06:34 → 3SE 02-22 15:10
PROVIDERS: ADMIT Urology; ATTEND Urology
PROC: 0TB10ZZ Excision of Left Kidney, Open Approach (ICD-10-PCS; principal; 2020-02-22)
DX: D30.02 Benign neoplasm of left kidney (principal); Z79.899 Other long term (current) drug therapy; I10 Essential (primary) hypertension; E78.5 Hyperlipidemia, unspecified; I25.10 Atherosclerotic heart disease of native coronary artery without angina pectoris; Z95.5 Presence of coronary angioplasty implant and graft; Z87.891 Personal history of nicotine dependence; Z79.82 Long term (current) use of aspirin; Z20.828 Contact with and (suspected) exposure to other viral communicable diseases
CPT/HCPCS: 36415; 71045; 80048; 85025; 86850; 86900; 86901; 88307; J0690; J2405; J2704; J3010; J3490; S0020

== ENCOUNTER 2020-03-04 23:39 | Inpatient (IN) | payer MEDICARE, OTHER ==
[2020-03-05] MEDS ORDERED: Cefepime 2 GM VIAL ONE (00:12)
[2020-03-05] MEDS ORDERED: Vancomycin 1 GM/200 ML BAG ONE (00:12)
[2020-03-05] MEDS ORDERED: Sodium Chloride 0.9% 100 ML ONE (00:13)
[2020-03-05 00:32] LABS: Hemoglobin 9.7 g/dL (14.0-18.0); Mean Corpuscular HGB CONC 34.1 g/dL (32.0-36.0); Mean Corpuscular Hemoglobin 35.1 pg (27.0-31.0); Mean Platelet Volume 8.9 fL (7.4-10.4); Platelet Count 431 thou/uL (130-400); Red Blood Cell (RBC) Count 2.77 mill/uL (4.70-6.10); White Blood Cell (WBC) Count 20.8 thou/uL (4.8-10.8)
[2020-03-05 00:45] LABS: ALT (SGPT) 46 U/L (8-55); AST (SGOT) 56 U/L (5-34); Alkaline Phosphatase 153 U/L (40-110); Anion Gap 25 mmol/L (10-20); BUN (Urea Nitrogen) 19 mg/dL (8.4-25.7); Bilirubin, Total 0.4 mg/dL (0.2-1.2); Calc. Creatinine Clearance 0 mL/min (70-130); Calcium 8.3 mg/dL (7.8-10.44); Carbon Dioxide 14 mmol/L (23-31); Chloride 100 mmol/L (98-107); Glucose 244 mg/dL (83-110); Potassium 4.3 mmol/L (3.5-5.1); Sodium 135 mmol/L (136-145)
[2020-03-05 00:48] LABS: Band 8 % (5-11); Lymphocytes 6 % (21-51); MDiff Complete? YES; Monocytes 4 % (0-10); Neutrophil 79 % (42-75); Platelet Morphology Comment Appears Increased; Reactive Lymphocytes 3 % (0-10)
[2020-03-05] MEDS ORDERED: Tranexamic Acid 1,000 MG/10 ML VIAL ONE (01:29)
[2020-03-05 01:55] LABS: SARS-CoV-2 NAA Rapid Test Not Detected (NotDetected)
[2020-03-05 02:03] LABS: Bilirubin Negative (Negative); Blood, Urine Negative (Negative); Clarity Clear (Clear); Glucose, Urine (Dipstick) Normal (Negative); Ketone, Urine Negative (Negative); Leukocyte Negative Leu/uL (Negative); Nitrite Negative (Negative); Protein, Urine (Dipstick) 20 mg/dL (Neg-Trace); Specific Gravity, Urine 1.018 (1.002-1.036); Urobilinogen Normal mg/dL (Less than 2)
--- NOTE | 2020-03-05 02:07 | PDOC.H&P ---
- History & Physical Encounter Time: 03/05/20 Encounter Time: 02:05 Chief complaint-I fainted The patient is an 79-year-old male who is not quite 2 weeks postop from a hand- assisted left nephrectomy. Sometime today, as the patient was watching TV, he began to experience symptoms of orthostatic hypotension. He called 911. He states that he fell while trying to answer the door. Shortly afterwards, he started developing tachypnea. He states that taking a deep breath hurts. He is not sure which side he fell on. Has some incisional pain as well as a firm bulge under one of his incisions. Past medical history hypertension, coronary artery disease, kidney mass Past surgical history cholecystectomy, appendectomy, bilateral cataracts, left knee surgery, cardiac stent, bilateral hand surgery Medications Norvasc, hydrochlorothiazide, Xanax, Astelin, Plavix, metoprolol Social history-no tobacco or alcohol use Family history-no history of renal cancer Review of systems negative for 10 system, two-point per system other than HPI Temperature 96, blood pressure 109/80, heart rate in the low 100s General-awake, elderly male, tachypneic from pain Head-[normocephalic, atraumatic] HEENT- [EOMI], [PERRLA] Neck-[trachea midline, supple] Lungs-[grossly clear to auscultation], [normal air movement] Heart-[regular regular], [no murmurs] Abdomen-[soft], slightly distended, numerous areas of tenderness mostly associated with incisions, patient has ecchymosis that is old down the midline and into the groins. A trocar site in the left upper abdomen appears to be an abscess, [normal active bowel sounds] Musculosketal-[], [no gross deformity] Psychiatric-[good insight, good judgment] Skin-[good turgor, no jaundice] Neuro- [GCS 15], [CN II-XII intact] Hemoglobin-9.7 down from 13 at the time of surgery, creatinine up to 1.6. Lactic acid is also elevated CT scan abdomen and pelvis-independently viewed the images, read the radiologist interpretation, there appears to be hemoperitoneum on both the left and right sides. The spleen appears to have a laceration. Radiologist remarks on active extravasation Assessment- 1-splenic laceration-I read the operative report from his surgery, there was no mention of incidental splenic trauma that could have started bleeding later. Given the duration from surgery, this is unlikely. Patient does not remember any information concerning his fall today. This is more likely the reason for a laceration. He is already started MTP and has received TXA. Blood pressure seems to be stable in the 100s and heart rate has been maintained in the low 100s. We have asked cardio thoracic surgery to evaluate the patient for potential embolization. If unsuccessful, he will need to return to the operating room for an emergent splenectomy. 2-coronary artery disease-patient on Plavix and aspirin. Has a history of stent placement. Plan-continue resuscitation in the emergency room. Automobile Or Truck Rental Dispatcher for embolization. If unsuccessful, to the operating room for splenectomy. Continue resuscitation with blood products.
[2020-03-05] MEDS ORDERED: Ondansetron PF 4 MG/2 ML Vial IVP PRN (02:15)
[2020-03-05] MEDS ORDERED: Morphine 2 MG/ML VIAL SLOW IVP PRN (02:15)
[2020-03-05] MEDS ORDERED: Norepinephrine 8 MG in Dextrose 5% in Water 242 ML IVPB PRN (04:30)
[2020-03-05 04:37] LABS: #Eosinphils 0.1 thou/uL (0.0-0.7); #Monocytes 1.4 thou/uL (0.11-0.59); #Neutrophils 12.6 thou/uL (1.40-6.50); %Basophils 0.3 % (0.0-1.0); %Eosinophils 0.7 % (0.0-10.0); %Lymphocytes 6.6 % (21.0-51.0); %Monocytes 9.1 % (0.0-10.0); %Neutrophils 83.3 % (42.0-75.0); Hemoglobin 10.2 g/dL (14.0-18.0); Mean Corpuscular HGB CONC 34.4 g/dL (32.0-36.0); Mean Corpuscular Hemoglobin 32.6 pg (27.0-31.0); Mean Corpuscular Volume 94.6 fL (78.0-98.0); Mean Platelet Volume 8.5 fL (7.4-10.4); Platelet Count 222 thou/uL (130-400); RBC Distribution Width 14.6 % (11.5-14.5); Red Blood Cell (RBC) Count 3.13 mill/uL (4.70-6.10); White Blood Cell (WBC) Count 15.1 thou/uL (4.8-10.8)
[2020-03-05] MEDS: Sodium Chloride 0.9% 1,000 ML IV SCH ×3 (04:57→18:07)
[2020-03-05 05:27] VITALS: BMI 31.8
[2020-03-05 06:18] LABS: Lactic Acid 1.7 mmol/L (0.5-2.2)
[2020-03-05] MEDS ORDERED: Fentanyl 250 MCG/5 ML VIAL ONE (07:16)
--- NOTE | 2020-03-05 08:29 | CT ---
PRELIMINARY REPORT/[facility]/EMERGENCY AFTER HOURS PROCEDURE: EXAM: CT Head and Cervical Spine Without IV contrast. CLINICAL HISTORY: FALL//FROM HOME, CALLED EMS FOR SOB x 1 HOUR WITH DIZZINESS. PT FELL WHEN GETTING OUT OF BED TO [facility] FOR EMS. LEFT KIDNEY REMOVED 02/21. TECHNIQUE: Axial computed tomography images were acquired of the head and the cervical spine without intravenous contrast. Sagittal and coronal reformatted images were obtained of the cervical spine. COMPARISON: None provided. FINDINGS: BRAIN: No acute intraparenchymal hemorrhage. No mass lesion. No CT evidence for acute territorial infarct. N o midline shift or extra-axial collection. VENTRICLES No hydrocephalus. ORBITS The orbits are unremarkable. SINUSES AND MASTOIDS The paranasal sinuses and mastoid air cells are clear. SOFT TISSUES No significant facial or scalp soft tissue swelling evident. No radiopaque foreign body is seen. BONES No acute osseous pathology evident. No acute fracture is evident on images of the head or cervical spine. DISKS/DEGENERATIVE CHANGES There is evidence of cervical spondylosis and degenerative disc disease Posterior cervical spine vertebral body alignment is within normal limits. IMPRESSION: 1. No acute intracranial findings. No acute intracranial injury evident. 2. No cervical spine fracture evident. ELECTRONICALLY SIGNED BY: Ana Cristina Waldrop MD Mar 05, 2020 1:21:38 AM LUMBER PLANER This report is intended for review by the ordering physician only, in accordance of law. If you recei ve this report in error, please call [facility] at [phone]. FINAL REPORT CT BRAIN WITHOUT CONTRAST: I agree with the preliminary report given by [facility]. POS: OFF
--- NOTE | 2020-03-05 08:30 | CT ---
PRELIMINARY REPORT/[facility]/EMERGENCY AFTER HOURS PROCEDURE: EXAM: CT Head and Cervical Spine Without IV contrast. CLINICAL HISTORY: FALL//FROM HOME, CALLED EMS FOR SOB x 1 HOUR WITH DIZZINESS. PT FELL WHEN GETTING OUT OF BED TO [facility] FOR EMS. LEFT KIDNEY REMOVED 02/21. TECHNIQUE: Axial computed tomography images were acquired of the head and the cervical spine without intravenous contrast. Sagittal and coronal reformatted images were obtained of the cervical spine. COMPARISON: None provided. FINDINGS: BRAIN: No acute intraparenchymal hemorrhage. No mass lesion. No CT evidence for acute territorial infarct. N o midline shift or extra-axial collection. VENTRICLES No hydrocephalus. ORBITS The orbits are unremarkable. SINUSES AND MASTOIDS The paranasal sinuses and mastoid air cells are clear. SOFT TISSUES No significant facial or scalp soft tissue swelling evident. No radiopaque foreign body is seen. BONES No acute osseous pathology evident. No acute fracture is evident on images of the head or cervical spine. DISKS/DEGENERATIVE CHANGES There is evidence of cervical spondylosis and degenerative disc disease Posterior cervical spine vertebral body alignment is within normal limits. IMPRESSION: 1. No acute intracranial findings. No acute intracranial injury evident. 2. No cervical spine fracture evident. ELECTRONICALLY SIGNED BY: Ana Cristina Waldrop MD Mar 05, 2020 1:21:38 AM TELEMETRY TECHNICIAN This report is intended for review by the ordering physician only, in accordance of law. If you recei ve this report in error, please call [facility] at [phone]. CT CERVICAL SPINE WITH CORONAL AND SAGITTAL REFORMATIONS AND NO IV CONTRAST: I agree with the preliminary report given by [facility]. POS: OFF
--- NOTE | 2020-03-05 08:32 | CT ---
PRELIMINARY REPORT/[facility]/EMERGENCY AFTER HOURS PROCEDURE: EXAM: CT Abdomen and Pelvis Without Intravenous Contrast CLINICAL HISTORY: Flank pain, stone disease suspected TECHNIQUE: Axial computed tomography images of the abdomen and pelvis without intravenous contrast. CONTRAST: None. COMPARISON: None provided. FINDINGS: LUNG BASES: No basilar airspace consolidation or pleural effusion. LIVER: Unremarkable. GALLBLADDER AND BILE DUCTS: Unremarkable. No calcified stone. No ductal dilation. PANCREAS: Unremarkable. SPLEEN: Defect in the posterior spleen suggests a 2.3 cm laceration. There is a large subcapsular hematoma a long the posterior spleen that measures 12.4 x 12.7 x 7 cm. There is hemoperitoneum. There is evidenc e of active bleed from the laceration site along the inferior spleen into the left abdominal cavity. IVC is collapsed raising concern for hypotension. ADRENAL GLANDS: Unremarkable. KIDNEYS, URETERS, AND BLADDER: Left kidney is absent. Right kidney appears intact. There are multiple right renal cysts.5. No hydr onephrosis or nephrolithiasis. No ureteral or bladder calculi. STOMACH AND BOWEL: No obstruction. No wall thickening. No CT evidence of colitis or acute diverticulitis. APPENDIX: No CT evidence for appendicitis. PERITONEUM: No free fluid. No free air. LYMPH NODES: No lymphadenopathy. REPRODUCTIVE: Unremarkable as visualized. VASCULATURE: No aortic aneurysm. ABDOMINAL WALL AND SOFT TISSUES: Soft tissue infiltration in the subcutaneous soft tissues of left abdominal wall suggest contusion. N o focal hematoma. BONES: No fracture or suspicious osseous abnormality. IMPRESSION: Grade 3 splenic injury with 2.3 cm posterior laceration, large splenic subcapsular hematoma with acti ve bleeding from the anterior spleen into the peritoneum and hemoperitoneum. Collapsed IVC suggesting hypotension. Findings reviewed with ERNESTINA Khalil at 21:11 PM HST ELECTRONICALLY SIGNED BY: Ana Cristina Waldrop MD Mar 05, 2020 1:19:49 AM CLIENT SERVICE MANAGER This report is intended for review by the ordering physician only, in accordance of law. If you recei ve this report in error, please call [facility] at [phone]. FINAL REPORT CT ABDOMEN AND PELVIS WITH IV CONTRAST: I agree with the preliminary report given by [facility]. POS: OFF
--- NOTE | 2020-03-05 09:23 | RAD ---
PORTABLE CHEST 1 VIEW: Date: 03/05/2020 Time: 0014 hours HISTORY: Shortness of breath. Dizziness. FINDINGS: The heart size is normal. The lungs are hypoexpanded. No lobar consolidation, pneumothoraces, or pleu ral effusions are seen. IMPRESSION: No acute process. POS: OFF
[2020-03-05] MEDS: Famotidine/PF 20 mg/2ml Vial SLOW IVP SCH (09:25)
[2020-03-05] MEDS ORDERED: Lidocaine 1% w/Epinephrine 1:100K 20 ML VIAL ONE (11:18)
[2020-03-05 11:53] LABS: Hemoglobin 10.9 g/dL (14.0-18.0); Mean Corpuscular HGB CONC 33.9 g/dL (32.0-36.0); Mean Corpuscular Hemoglobin 31.6 pg (27.0-31.0); Mean Corpuscular Volume 93.3 fL (78.0-98.0); Mean Platelet Volume 8.9 fL (7.4-10.4); Platelet Count 230 thou/uL (130-400); RBC Distribution Width 15.2 % (11.5-14.5); Red Blood Cell (RBC) Count 3.44 mill/uL (4.70-6.10); White Blood Cell (WBC) Count 23.3 thou/uL (4.8-10.8)
[2020-03-05 12:03] LABS: Anion Gap 19 mmol/L (10-20); BUN (Urea Nitrogen) 27 mg/dL (8.4-25.7); Calc. Creatinine Clearance 57 mL/min (70-130); Calcium 7.4 mg/dL (7.8-10.44); Carbon Dioxide 20 mmol/L (23-31); Chloride 105 mmol/L (98-107); Glucose 164 mg/dL (83-110); Potassium 5.7 mmol/L (3.5-5.1); Sodium 138 mmol/L (136-145)
[2020-03-05] MEDS ORDERED: HYDROcodone/Acetaminophen 5/325 mg Tablet PO PRN (12:37)
--- NOTE | 2020-03-05 13:08 | PDOC.GSOPN ---
General Surgery Procedure Note - Operative Note Date: 03/05/20 Time: 12:00 Pre-op diagnosis: Incisional abscess Post-op diagnosis: same Procedure: Incision and drainage Findings: Incisional abscess Anesthesia: local Surgeon: Ceferino Santizo Estimated blood loss: 0 Pathology: other Condition: stable - Description of Procedure Details: After preprocedural informed consent, the incision site in the left mid abdomen that is raised, erythematous, and tender was prepared and draped in sterile fashion. A timeout was performed. Lidocaine was injected. The old incision was reopened. The abscess was drained. Cultures were obtained. Gauze was placed in the incision. Sterile dressings were applied. Patient tolerated procedure well.
[2020-03-05] MEDS: HYDROcodone/Acetaminophen 5/325 mg Tablet PO PRN (13:09)
--- NOTE | 2020-03-05 13:12 | PDOC.GSPN ---
Surgery Progress Note: Subj - Subjective Narrative: Patient is day of trauma and embolization of splenic artery This afternoon, patient states that he is still having some abdominal pain, but it is improving from earlier this morning. Wanting to get up and move around a little bit. Hungry. Breathing is still a little difficult with deep breaths, but seems to be improving. Review of systems-no chest pain, no nausea or vomiting, no shoulder pain. Surgery Progress Note: Obj - Vital signs Vital signs: Vital Signs - Most Recent Temp Pulse Resp BP Pulse Ox 98 F 97 03/05/20 04:50 03/05/20 08:00 - Physical Exam Additional exam: General-uncomfortable, but no acute distress, well-nourished Head-[normocephalic, atraumatic] HEENT- [EOMI], [PERRLA] Neck-[trachea midline, supple] Lungs-[grossly clear to auscultation], [normal air movement] Heart-[regular regular], [no murmurs] Abdomen-[soft], somewhat distended, appropriately tender for his trauma, incisions are clean and dry with the exception of a left upper mid abdomen port site that appears to be an abscess. Patient still has ecchymosis in the lower and mid abdomen, [normal active bowel sounds] Musculosketal-cath sheath in groin psychiatric-[good insight, good judgment] Skin-[good turgor, no jaundice] Neuro- [GCS 15], [CN II-XII intact] Surgery Progress Note: Results - Labs Result Diagrams: 03/05/20 11:15 03/05/20 11:15 Lab results: Laboratory Results - last 12 hr 03/05/20 03/05/20 03/05/20 00:20 00:30 01:46 WBC RBC Hgb Hct MCV MCH MCHC RDW Plt Count MPV Neutrophils % Lymphocytes % Monocytes % Eosinophils % Basophils % Neutrophils # Lymphocytes # Monocytes # Eosinophils # Basophils # Sodium Potassium Chloride Carbon Dioxide Anion Gap BUN Creatinine Estimated GFR (MDRD) Glucose Lactic Acid Calcium Urine Color Yellow Urine Clarity Clear Urine pH 6.0 Ur Specific Nelson 1.018 Urine Protein 20 Urine Glucose (UA) Normal Urine Ketones Negative Urine Blood Negative Urine Nitrite Negative Urine Bilirubin Negative Urine Urobilinogen Normal Ur Leukocyte Esterase Negative Influenza A RNA INAAT Not Detected Influenza B RNA INAAT Not Detected SARS-CoV-2 Rap RNA(RT-PCR) Not Detected Blood Type A NEGATIVE Antibody Screen NEGATIVE Crossmatch See Detail 03/05/20 03/05/20 03/05/20 04:10 05:41 11:15 WBC 15.1 H RBC 3.13 L Hgb 10.2 L Hct 29.6 L MCV 94.6 MCH 32.6 H MCHC 34.4 RDW 14.6 H Plt Count 222 MPV 8.5 Neutrophils % 83.3 H Lymphocytes % 6.6 L Monocytes % 9.1 Eosinophils % 0.7 Basophils % 0.3 Neutrophils # 12.6 H Lymphocytes # 1.0 L Monocytes # 1.4 H Eosinophils # 0.1 Basophils # 0.0 Sodium 138 Potassium 5.7 H Chloride 105 Carbon Dioxide 20 L Anion Gap 19 BUN 27 H Creatinine 1.44 H Estimated GFR (MDRD) 47 Glucose 164 H Lactic Acid 1.7 Calcium 7.4 L Urine Color Urine Clarity Urine pH Ur Specific Nelson Urine Protein Urine Glucose (UA) Urine Ketones Urine Blood Urine Nitrite Urine Bilirubin Urine Urobilinogen Ur Leukocyte Esterase Influenza A RNA INAAT Influenza B RNA INAAT SARS-CoV-2 Rap RNA(RT-PCR) Blood Type Antibody Screen Crossmatch 03/05/20 11:15 WBC 23.3 H RBC 3.44 L Hgb 10.9 L Hct 32.1 L MCV 93.3 MCH 31.6 H MCHC 33.9 RDW 15.2 H Plt Count 230 MPV 8.9 Neutrophils % Lymphocytes % Monocytes % Eosinophils % Basophils % Neutrophils # Lymphocytes # Monocytes # Eosinophils # Basophils # Sodium Potassium Chloride Carbon Dioxide Anion Gap BUN Creatinine Estimated GFR (MDRD) Glucose Lactic Acid Calcium Urine Color Urine Clarity Urine pH Ur Specific Nelson Urine Protein Urine Glucose (UA) Urine Ketones Urine Blood Urine Nitrite Urine Bilirubin Urine Urobilinogen Ur Leukocyte Esterase Influenza A RNA INAAT Influenza B RNA INAAT SARS-CoV-2 Rap RNA(RT-PCR) Blood Type Antibody Screen Crossmatch Surgery Progress Note: A/P - Problem (1) Splenic laceration Current Visit: Yes Code(s): S36.039A - UNSPECIFIED LACERATION OF SPLEEN, INITIAL ENCOUNTER Status: Acute Assessment and Plan: Thanks to Dr. Rodriguez, the patient was able to undergo successful embolization of his spleen. This obviously avoided an emergent splenectomy. The patient's hemoglobin has been stable and his hemodynamics are improving. His creatinine has improved. He is making 10 to 20 mL of urine per hour. I will recheck another hemoglobin in several hours. If this remains stable, he may be transferred to the floor. We will get his arterial sheath out prior to transfer. Also, advance his diet. Switch over to p.o. pain meds. He will need vaccinations (2) Coronary artery disease Current Visit: Yes Code(s): I25.10 - ATHSCL HEART DISEASE OF [place] CORONARY ARTERY W/O ANG PCTRS Status: Acute Assessment and Plan: Patient is on Plavix and aspirin. He had a stent recently, but it is been greater than 6 months. At this point, hold his Plavix at least until discharge. If he continues to do well, hopefully he can be discharged in the next several days.
--- NOTE | 2020-03-05 13:32 | OP ---
DATE OF PROCEDURE: 03/05/2020 PREOPERATIVE DIAGNOSIS: Splenic rupture. POSTOPERATIVE DIAGNOSIS: Splenic rupture. PROCEDURE: Aortogram and selective splenic artery angiogram, selective hepatic artery angiogram, and then embolization of splenic artery branches and main splenic artery using 10 separate interlock coils. DESCRIPTION OF PROCEDURE: After prepping and draping, ultrasound guidance of puncture of the right common femoral artery was performed. Initial puncture was slightly low and pressure was held and a second puncture more proximally was carried out, following which access was obtained and a 5-Belgian dilator and sheath were placed. Following this, Contra catheter was advanced into the abdominal aorta and a lateral arteriogram obtained demonstrating takeoffs of the celiac, superior mesenteric vessels. Following this, the splenic artery was selectively cannulated with a renal double curve catheter and [employer] guidewire and then angled Glidewire were utilized. Following which, initially the hepatic artery was cannulated and then with withdrawal of the catheter slightly and an angled Glidewire was used to cannulate the splenic artery. The angled glide catheter was advanced over this wire and then through this catheter, the Luge wire and the microcatheter were advanced. Following this, initially a 3 mm coil was deployed in a more superior pole branch of the splenic artery. There was no active extravasation noted. Following this, a separate 3 mm coil was deployed and then the catheter backed out into the main splenic artery, at which time multiple coils were deployed including 4 x 8 coils x4, 5 x 8 coils x2, and lastly 6 x 8 coils x2. The upper pole branches had no flow and there was still persistent flow through the mid and lower portion of the spleen branches. However, this splenic artery was well coiled and it is anticipated that this will thrombose shortly. The patient was on Plavix and aspirin and did receive a total of 5 units of packed red cells, 2 of which were in the supervisor dental laboratory as well as 3 of fresh frozen. After removal of the wires and catheter, the 5-[place]gian sheath was secured to the skin and the patient is to be taken to the ICU with blood pressure of 110 and heart rate of about 109. Job ID: [id number]
[2020-03-05] MEDS ORDERED: Iopamidol-370 76% 500 ML 1 ML ONE (13:42)
[2020-03-05] MEDS ORDERED: HYDROcodone/Acetaminophen 5/325 mg Tablet PO SCH (14:15)
--- NOTE | 2020-03-05 15:59 | CON ---
DATE OF CONSULTATION: 03/05/2020 HISTORY OF PRESENT ILLNESS: Mr. Lee is an 79-year-old gentleman who was admitted here 2 weeks ago and underwent a hand-assisted left nephrectomy for carcinoma. His postsurgical course was fairly uncomplicated. He states that yesterday he had been watching television when he suddenly felt very lightheaded and weak. He fell off the bed. He is unsure exactly how long these events occurred. He stood up and had a fall, at which time he hit the bridge of his nose. He felt that he needed to seek medical attention and went from his upstairs bedroom to downstairs. He was able to traverse the stairs by sitting down and lowering himself one step at a time. He contacted the ambulance service and they came and picked him up. He was brought to the emergency room and evaluation revealed some pain in the upper abdomen and it was tender on palpation. He had a CAT scan, demonstrating a splenic laceration and subcapsular hematoma as well as a hemoperitoneum. His hemoglobin was 9.7, having been 13.7 at the time of recent hospital discharge. General Surgery was consulted as well as Cardiovascular Surgery. The patient was taken to the procedure lab and underwent arteriography followed by coil embolization of the splenic artery. It was noted that flow had not completely ceased at the termination of the procedure and this was most likely related to the patient's antiplatelet therapy. It is noted that he did receive thromboxane preoperatively. The patient denies any fall or injury prior to his initial symptoms of being orthostatic. He has not had any nausea or vomiting and has had no hematemesis. He denied any chest pain, but did report some diaphragmatic irritation on the left. Following embolization, the patient is brought to the intensive care unit. He had a small abscess of the abdominal wall and this was treated with incision and drainage at the bedside. The patient's arterial sheaths had been removed. He states he generally feels uncomfortable, but no other specific complaints and is improved compared to how he felt yesterday. He has obviously not been out of bed to test for orthostatic symptoms. SOCIAL HISTORY: The patient is an 79-year-old gentleman. Now, he has no medication allergies. He has a rare social drink. He has not smoked in many, many years. His medication list is reviewed. 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 PAST HISTORY: Remarkable for past bladder cancer and then more recent development of renal carcinoma. He denies a history of prior myocardial infarction or heart failure. He does not have a history of COPD or asthma. He does not have a history of stroke. He has a history of hypertension. His chart reflects a diagnosis of coronary artery disease and stent, although he had denied that specifically to me. REVIEW OF SYSTEMS: Remarkable as above. PHYSICAL EXAMINATION: VITAL SIGNS: Blood pressure 122/73, heart rate 104, respiratory rate 28, saturation 93% on low-flow nasal oxygen, and temperature 99.3. GENERAL: He is in no distress. He is alert, telling jokes, complains of being sore due to his current immobile state following removal of his groin sheath. He has no icterus. LUNGS: Clear to auscultation. HEART: Regular rate and rhythm. ABDOMEN: Soft. He has no organomegaly postsurgical and there is no palpable mass. There is no rebound. EXTREMITIES: Without cyanosis, clubbing, or edema. NEUROLOGIC: Nonfocal. He is oriented x3. LABORATORY DATA: Current white count 23,300, hemoglobin is 10.9 up from 9.7 at initial ER presentation, and platelet count 230,000. Chemistry panel includes sodium 138, potassium 5.7, chloride 105, CO2 is 20, BUN 27, and creatinine 1.4. His baseline creatinine appears to be between 0.8 and 1.0. Influenza and COVID swabs were negative and urinalysis was negative. IMPRESSION: Status post splenic laceration with subcapsular hematoma and hemoperitoneum. He has undergone successful coil embolization. The patient specifically denies to me any fall or injury preceding his symptoms of orthostasis, which then prompted the fall, which he describes. He is a bit to removed from a time perspective to be associated with his nephrectomy done 2 weeks ago. In any case, he seems to now be on demand. PLAN: The patient will be immobile for another few hours following removal of his sheath. He can then either be moved to [facility] or to the medical floor. I anticipate that he will be here for another day or 2. Orthostatic precautions are discussed. There is no evidence that he is going to need a transfusion at this point. Relatively soon, we anticipate resumption of his antiplatelet regimen. Thank you for this consultation. Job ID: [id number]
[2020-03-05 17:15] LABS: Hemoglobin 10.6 g/dL (14.0-18.0); Mean Corpuscular HGB CONC 33.9 g/dL (32.0-36.0); Mean Corpuscular Hemoglobin 31.7 pg (27.0-31.0); Mean Corpuscular Volume 93.6 fL (78.0-98.0); Mean Platelet Volume 8.9 fL (7.4-10.4); Platelet Count 237 thou/uL (130-400); RBC Distribution Width 15.6 % (11.5-14.5); Red Blood Cell (RBC) Count 3.33 mill/uL (4.70-6.10); White Blood Cell (WBC) Count 25.2 thou/uL (4.8-10.8)
[2020-03-05] MEDS: Azelastine 137 MCG/Spray 30 ML NS SCH (20:55)
[2020-03-05] MEDS: Montelukast Sodium 10 mg Tablet PO SCH (20:55)
[2020-03-05] MEDS: ALPRAZolam 0.5 MG TAB PO SCH (20:55)
[2020-03-06] MEDS: Sodium Chloride 0.9% 1,000 ML IV SCH (04:22)
[2020-03-06 05:24] LABS: #Lymphocytes 1.1 thou/uL (1.20-3.40); #Monocytes 2.9 thou/uL (0.11-0.59); %Eosinophils 0.1 % (0.0-10.0); %Lymphocytes 3.9 % (21.0-51.0); %Monocytes 10.8 % (0.0-10.0); %Neutrophils 85.1 % (42.0-75.0); Hemoglobin 8.9 g/dL (14.0-18.0); Mean Corpuscular HGB CONC 33.7 g/dL (32.0-36.0); Mean Corpuscular Hemoglobin 31.9 pg (27.0-31.0); Mean Corpuscular Volume 94.6 fL (78.0-98.0); Mean Platelet Volume 9.2 fL (7.4-10.4); Platelet Count 235 thou/uL (130-400); RBC Distribution Width 15.5 % (11.5-14.5)
[2020-03-06] MEDS: Famotidine/PF 20 mg/2ml Vial SLOW IVP SCH (08:41)
[2020-03-06] MEDS: Azelastine 137 MCG/Spray 30 ML NS SCH ×2 (08:41→19:59)
[2020-03-06] MEDS: Famotidine 20 MG TAB PO SCH ×2 (08:54→20:00)
[2020-03-06] MEDS: Ciprofloxacin 500 MG TAB PO SCH ×2 (08:54→20:00)
[2020-03-06] MEDS ORDERED: Hydrochlorothiazide 25 MG TAB PO SCH (09:00)
--- NOTE | 2020-03-06 11:13 | PRG ---
DATE OF SERVICE: 03/06/2020 SUBJECTIVE: Jovani Lee is an 79-year-old gentleman, who left the ICU, now on the surgical floor. OBJECTIVE: VITAL SIGNS: Temperature of 97, pulse abdominal pain, denies difficulty breathing. CHEST: Decreased breath sounds. No wheezing. CARDIAC: Normal S1 and S2. No gallops. ABDOMEN: No masses. LABORATORY DATA: White count 27,000. H and H 8 and 26, platelet count 235. Creatinine 1.4. ASSESSMENT AND PLAN: 1. Status post emergent surgery for massive splenic bleed status post embolization. 2. Recent nephrectomy. 3. Azotemia. Pulmonary teresa, he appears to be relatively stable. Continue PT, supportive care. He was started on some antibiotics. Apparently, Trauma is seeing the patient. Pulmonary is going to follow at a distance. Please call if needed. Job ID: [id number]
--- NOTE | 2020-03-06 11:34 | RAD ---
XR Chest Pa Lat STANDARD HISTORY: Shortness of breath COMPARISON: Previous day FINDINGS: The heart size is normal. The lungs are hypoexpanded without focal areas of consolidation, pneumothorax or large pleural effusions. Small pleural effusions particularly on the right may be present..
--- NOTE | 2020-03-06 13:54 | PRG ---
DATE OF SERVICE: 03/06/2020 SUBJECTIVE: The patient is an 79-year-old male who is hospital day 1, postop day 1, status post emergent surgery for massive splenic bleed, status post embolization. The patient is doing well today, sitting up in bed. He does endorse shortness of breath since coming to the hospital. The patient says he feels weak because he has not really been eating, but overall says he feels better. Pulmonary essentially signed off today, stating that they would follow the patient at a distance. OBJECTIVE: VITAL SIGN: Temperature 97.6, heart rate 97, respiratory rate 20, O2 saturation 96% on 3 L of nasal cannula, and blood pressure 129/73. GENERAL: Sitting up in the chair, looks comfortable. No acute distress. HEENT: Extraocular movement intact. LUNGS: Clear to auscultation. HEART: Regular rate and rhythm. ABDOMEN: Soft. Bowel sounds present. Incision sites clean, dry, and intact. MUSCULOSKELETAL: Trace edema, bilateral lower extremities. NEUROLOGIC: Neurovascularly intact. LAB: WBC 26, Hemoglobin 8.9 DIAGNOSTIC STUDIES: Chest x-ray performed today, shows normal heart size, lungs are hypo-expanded without focal areas of consolidation, pneumothorax, or large pleural effusion. Small pleural effusion, particularly on the right side. ASSESSMENT: 1. Status post embolization for splenic bleed. 2. Recent nephrectomy. 3. Azotemia, improving. PLAN: PT and OT orders put in today along with Case Management order to start prepping discharge. We will give the patient three doses of 20 of Lasix as the patient's shortness of breath is likely secondary to fluid overload as he has received many fluids, making his in and out balance up 3.8 L. Encourage ambulation and advancing diet as tolerated. Continue to hold Plavix. Dr. Ralph saw the patient on rounds. Plan was discussed with him and he agrees. Job ID: [id number] [facility] [place]
[2020-03-06] MEDS: Furosemide 20 MG/2 ML VIAL SLOW IVP SCH ×2 (14:19→22:25)
[2020-03-06] MEDS: ALPRAZolam 0.5 MG TAB PO SCH (19:59)
[2020-03-06] MEDS: Montelukast Sodium 10 mg Tablet PO SCH (20:00)
[2020-03-06] MEDS: HYDROcodone/Acetaminophen 5/325 mg Tablet PO PRN ×2 (22:24→23:57)
[2020-03-07] MEDS: Furosemide 20 MG/2 ML VIAL SLOW IVP SCH (05:48)
[2020-03-07 06:08] LABS: Anion Gap 13 mmol/L (10-20); BUN (Urea Nitrogen) 40 mg/dL (8.4-25.7); Calc. Creatinine Clearance 39 mL/min (70-130); Calcium 7.6 mg/dL (7.8-10.44); Carbon Dioxide 25 mmol/L (23-31); Chloride 102 mmol/L (98-107); Glucose 109 mg/dL (83-110); Potassium 5.1 mmol/L (3.5-5.1); Sodium 135 mmol/L (136-145)
[2020-03-07 06:54] LABS: Hemoglobin 7.3 g/dL (14.0-18.0); Mean Corpuscular HGB CONC 34.8 g/dL (32.0-36.0); Mean Corpuscular Hemoglobin 33.5 pg (27.0-31.0); Mean Corpuscular Volume 96.2 fL (78.0-98.0); Mean Platelet Volume 8.7 fL (7.4-10.4); Platelet Count 234 thou/uL (130-400); Red Blood Cell (RBC) Count 2.17 mill/uL (4.70-6.10); White Blood Cell (WBC) Count 29.3 thou/uL (4.8-10.8)
[2020-03-07 06:55] LABS: Band 6 % (5-11); Lymphocytes 2 % (21-51); MDiff Complete? YES; Monocytes 4 % (0-10); Neutrophil 81 % (42-75); Platelet Morphology Comment Appears Adequate; Polychromasia SLIGHT = 2-3 cells (100X) (0-2/hpf); Reactive Lymphocytes 7 % (0-10)
[2020-03-07 09:26] LABS: Hemoglobin 7.4 g/dL (14.0-18.0); Mean Corpuscular HGB CONC 33.6 g/dL (32.0-36.0); Mean Corpuscular Hemoglobin 32.2 pg (27.0-31.0); Mean Corpuscular Volume 95.8 fL (78.0-98.0); Mean Platelet Volume 8.9 fL (7.4-10.4); Platelet Count 258 thou/uL (130-400); RBC Distribution Width 15.1 % (11.5-14.5); White Blood Cell (WBC) Count 28.2 thou/uL (4.8-10.8)
[2020-03-07 09:38] LABS: ALT (SGPT) 23 U/L (8-55); AST (SGOT) 20 U/L (5-34); Alkaline Phosphatase 118 U/L (40-110); Anion Gap 14 mmol/L (10-20); BUN (Urea Nitrogen) 39 mg/dL (8.4-25.7); Bilirubin, Total 0.4 mg/dL (0.2-1.2); Calc. Creatinine Clearance 39 mL/min (70-130); Calcium 7.9 mg/dL (7.8-10.44); Carbon Dioxide 25 mmol/L (23-31); Chloride 102 mmol/L (98-107); Globulin 2.6 g/dL (2.4-3.5); Glucose 108 mg/dL (83-110); Potassium 5.1 mmol/L (3.5-5.1); Protein, Total 5.6 g/dL (5.8-8.1); Sodium 136 mmol/L (136-145)
[2020-03-07] MEDS: Sodium Chloride 0.9% 1,000 ML IV SCH ×2 (10:33→22:19)
[2020-03-07] MEDS: Ciprofloxacin 500 MG TAB PO SCH ×2 (10:37→20:49)
[2020-03-07] MEDS: Famotidine 20 MG TAB PO SCH (10:37)
[2020-03-07] MEDS: Ascorbic Acid 500 mg Chewable Tablet PO SCH ×2 (10:38→17:44)
[2020-03-07] MEDS ORDERED: Acetaminophen/Codeine 30-300mg Tablet PO PRN (10:40)
[2020-03-07 10:41] LABS: Anisocytosis SLIGHT = 6-15 cells (100X) (0-5/hpf); Band 1 % (5-11); Lymphocytes 4 % (21-51); MDiff Complete? YES; Monocytes 4 % (0-10); Neutrophil 91 % (42-75); Platelet Morphology Comment Appears Adequate
[2020-03-07] MEDS: Azelastine 137 MCG/Spray 30 ML NS SCH ×2 (10:42→20:49)
[2020-03-07] MEDS ORDERED: Acetaminophen 325 MG TAB PO SCH (10:45)
[2020-03-07] MEDS: Acetaminophen 325 MG TAB PO SCH ×3 (12:07→23:58)
[2020-03-07] MEDS: Ferrous Sulfate 325 MG TAB PO SCH ×2 (12:08→17:46)
[2020-03-07] MEDS: Senokot S 8.6-50 MG TAB PO SCH (20:49)
[2020-03-07] MEDS: Montelukast Sodium 10 mg Tablet PO SCH (20:49)
[2020-03-07] MEDS: ALPRAZolam 0.5 MG TAB PO SCH (20:49)
[2020-03-08 05:16] LABS: #Monocytes 2.9 thou/uL (0.11-0.59); #Neutrophils 18.5 thou/uL (1.40-6.50); %Basophils 0.1 % (0.0-1.0); %Eosinophils 0.1 % (0.0-10.0); %Lymphocytes 4.5 % (21.0-51.0); %Monocytes 13.1 % (0.0-10.0); %Neutrophils 82.2 % (42.0-75.0); Hemoglobin 7.8 g/dL (14.0-18.0); Mean Corpuscular HGB CONC 34.1 g/dL (32.0-36.0); Mean Corpuscular Hemoglobin 32.6 pg (27.0-31.0); Mean Corpuscular Volume 95.7 fL (78.0-98.0); Mean Platelet Volume 8.5 fL (7.4-10.4); Platelet Count 248 thou/uL (130-400); RBC Distribution Width 14.8 % (11.5-14.5); White Blood Cell (WBC) Count 22.5 thou/uL (4.8-10.8)
[2020-03-08 05:55] LABS: Phosphorus 3.3 mg/dL (2.3-4.7)
[2020-03-08 05:56] LABS: ALT (SGPT) 19 U/L (8-55); AST (SGOT) 15 U/L (5-34); Albumin 2.8 g/dL (3.4-4.8); Alkaline Phosphatase 114 U/L (40-110); Anion Gap 13 mmol/L (10-20); BUN (Urea Nitrogen) 36 mg/dL (8.4-25.7); Bilirubin, Total 0.3 mg/dL (0.2-1.2); Calc. Creatinine Clearance 50 mL/min (70-130); Calcium 7.8 mg/dL (7.8-10.44); Carbon Dioxide 24 mmol/L (23-31); Chloride 102 mmol/L (98-107); Globulin 2.5 g/dL (2.4-3.5); Glucose 120 mg/dL (83-110); Magnesium 1.9 mg/dL (1.6-2.6); Potassium 4.4 mmol/L (3.5-5.1); Protein, Total 5.3 g/dL (5.8-8.1); Sodium 135 mmol/L (136-145)
[2020-03-08] MEDS: Acetaminophen 325 MG TAB PO SCH ×4 (06:04→23:42)
--- NOTE | 2020-03-08 06:45 | PRG ---
DATE OF SERVICE: 03/07/2020 SUBJECTIVE: Patient is an 79-year-old male who is hospital day two, postop day two, status post emergent surgery for massive splenic bleed, status post embolization after a fall. The patient is doing well today, sitting up in his chair. He states that he does endorse shortness of breath greater than his baseline, but he says that it feels better than yesterday. The patient says he still feels weak and especially out of breath whenever he gets up and moves around with therapy. He is still requiring 2-3 L of oxygen. He has been working with his incentive spirometer and has needed only two doses of [place] in the last 24 hours. OBJECTIVE: VITAL SIGNS: Temperature 98.1, respiratory rate 18, blood pressure 111/65, heart rate 95. GENERAL: Sitting up in chair, looks comfortable. No acute distress. HEENT: Extraocular movement intact. LUNGS: Breath sounds diminished in all lung franco. HEART: Regular rate and rhythm. ABDOMEN: Soft, nontender. Incision site clean, dry, and intact. MUSCULOSKELETAL: No edema in bilateral lower extremities. NEUROLOGIC: Neurovascularly intact. GCS of 15. LABORATORY: White blood cell count 28.2, hemoglobin of 7.4, hematocrit of 22.1. Sodium, potassium, chloride all within normal limits. Creatinine elevated at 2.07. DIAGNOSTIC STUDIES: Chest x-ray done on 03/06/2020 showed a small pleural effusion particularly on the right and atelectasis. ASSESSMENT: 1. Status post embolization for splenic bleed. 2. Recent nephrectomy. 3. Acute kidney injury likely 2/2 contrast induced neprhopathy 4. Shortness of breath, likely secondary to atelectasis. 5. Anemia. PLAN: PT and OT have been working with the patient and spoke with Case Management to work on some placement for rehab on discharge. Patient's hemoglobin dropped to 7.3, so we will transfuse 1 unit today. We will hold hydrochlorothiazide given patient's increase in creatinine. We will also start back on gentle fluids of 75 mL of normal saline per hour. Encouraged p.o. hydration and use of incentive spirometer and Arcapella. We will also put in DuoNebs to try to help with patient's shortness of breath. We will repeat chest x-ray and labs in the morning. We will continue to hold his Plavix at this time. Dr. Ralph saw this patient on rounds with me. Plan was discussed with him and he agrees with the above documentation. Job [facility]: [id number] [facility]
[2020-03-08] MEDS: Azelastine 137 MCG/Spray 30 ML NS SCH ×2 (09:27→20:43)
[2020-03-08] MEDS: Polyethylene Glycol 3350 17 GM Packet PO SCH (09:28)
[2020-03-08] MEDS: Ciprofloxacin 500 MG TAB PO SCH ×2 (09:28→20:43)
[2020-03-08] MEDS: Famotidine 20 MG TAB PO SCH (09:28)
[2020-03-08] MEDS: Senokot S 8.6-50 MG TAB PO SCH ×2 (09:28→20:44)
--- NOTE | 2020-03-08 09:47 | RAD ---
CHEST 2 VIEWS: HISTORY: Shortness of breath. COMPARISON: Prior day's study. FINDINGS: The film is of less than optimal inspiration. Bibasilar atelectatic lung changes are seen. Changes in the left base appear somewhat more prominent. There is blunting to the left costophrenic angle. Air under the right hemidiaphragm that appears to be related to interposition of either colon or smal l bowel. This is similar in appearance seen on other exams. IMPRESSION: Slight worsening to the left lower lobe pleural and parenchymal lung changes. This could represent e ffusion with atelectasis or infiltrate. POS: MARY GRACE
[2020-03-08] MEDS: Ferrous Sulfate 325 MG TAB PO SCH ×2 (12:02→18:06)
[2020-03-08] MEDS: Ascorbic Acid 500 mg Chewable Tablet PO SCH ×2 (12:02→18:06)
[2020-03-08] MEDS: Sodium Chloride 0.9% 1,000 ML IV SCH ×2 (12:03→20:49)
[2020-03-08] MEDS: ALPRAZolam 0.5 MG TAB PO SCH (20:43)
[2020-03-08] MEDS: Montelukast Sodium 10 mg Tablet PO SCH (20:44)
[2020-03-09 06:22] LABS: Anion Gap 13 mmol/L (10-20); BUN (Urea Nitrogen) 27 mg/dL (8.4-25.7); Calc. Creatinine Clearance 71 mL/min (70-130); Carbon Dioxide 25 mmol/L (23-31); Chloride 102 mmol/L (98-107); Glucose 107 mg/dL (83-110); Magnesium 1.9 mg/dL (1.6-2.6); Phosphorus 2.7 mg/dL (2.3-4.7); Potassium 4.4 mmol/L (3.5-5.1); Sodium 136 mmol/L (136-145)
[2020-03-09] MEDS: Acetaminophen 325 MG TAB PO SCH ×3 (06:37→16:58)
[2020-03-09 06:56] LABS: Band 4 % (5-11); Eosinophils 1 % (0-10); Hemoglobin 8.7 g/dL (14.0-18.0); Lymphocytes 4 % (21-51); MDiff Complete? YES; Mean Corpuscular HGB CONC 33.3 g/dL (32.0-36.0); Mean Corpuscular Hemoglobin 32.1 pg (27.0-31.0); Mean Corpuscular Volume 96.4 fL (78.0-98.0); Mean Platelet Volume 8.4 fL (7.4-10.4); Monocytes 11 % (0-10); Neutrophil 80 % (42-75); Platelet Count 294 thou/uL (130-400); Platelet Morphology Comment Appears Adequate; RBC Distribution Width 15.3 % (11.5-14.5); Red Blood Cell (RBC) Count 2.72 mill/uL (4.70-6.10); White Blood Cell (WBC) Count 17.8 thou/uL (4.8-10.8)
[2020-03-09] MEDS ORDERED: PHOS-NAK 1 PKT PACK PO SCH (09:00)
[2020-03-09] MEDS ORDERED: Magnesium 2 GM/50 ML 2 GM in Premix Bag 1 BAG IVPB SCH (09:00)
[2020-03-09] MEDS ORDERED: Bisacodyl 10 MG SUPP PR SCH (09:00)
[2020-03-09] MEDS: Azelastine 137 MCG/Spray 30 ML NS SCH (10:18)
[2020-03-09] MEDS: Polyethylene Glycol 3350 17 GM Packet PO SCH (10:20)
[2020-03-09] MEDS: Famotidine 20 MG TAB PO SCH (10:20)
[2020-03-09] MEDS: Ciprofloxacin 500 MG TAB PO SCH (10:21)
[2020-03-09] MEDS: Senokot S 8.6-50 MG TAB PO SCH (10:21)
[2020-03-09] MEDS: Ferrous Sulfate 325 MG TAB PO SCH ×2 (10:25→16:58)
[2020-03-09] MEDS: Ascorbic Acid 500 mg Chewable Tablet PO SCH ×2 (10:27→16:58)
[2020-03-09] MEDS ORDERED: Tamsulosin HCl 0.4 MG CAP PO SCH (12:30)
--- NOTE | 2020-03-09 15:41 | PRG ---
DATE OF SERVICE: 03/08/2020 SUBJECTIVE: The patient is an 79-year-old male, who is hospital day #3, postop day #3, status post emergent surgery for massive splenic bleed, status post embolization after fall. The patient is doing well. He is sitting up in his chair. He states that he still has some shortness of breath, but he feels like it does improve after working with incentive spirometer and Acapella. He says that he has been able to get up and walk around with physical therapy and may lap around the floor, but still feels weaker than he usually is as he usually goes to the gym about 5 days a week, where he did prior to his injury. He is still requiring about 2 L of oxygen. He says his pain is well controlled and he is tolerating a regular diet. OBJECTIVE: VITAL SIGNS: Temperature 98.1, pulse 100, respiratory rate 16, SpO2 of 96% on 2 L nasal cannula, blood pressure 125/75. GENERAL: Sitting up in chair, looks comfortable. No acute distress. HEENT: Extraocular movement intact. LUNGS: Breath sounds diminished in all lung franco. HEART: Regular rate and rhythm. ABDOMEN: Soft, nontender. Incision site is clean, dry, and intact. The patient has scattered ecchymoses over his abdomen, which is consistent with previous exams. MUSCULOSKELETAL: No edema in bilateral lower extremities. NEUROLOGIC: Neurovascularly intact. GCS of 15. LABORATORY DATA: White blood cell count 22.5, which is improved; hemoglobin 7.8; hematocrit 23. Sodium 135, potassium 4.4, chloride 102, BUN 36, creatinine 1.62, which is improved. Magnesium 1.9. DIAGNOSTIC STUDIES: Chest x-ray performed this morning shows slight worsening to the left lower lobe pleural and parenchymal lung changes. This could represent effusion with atelectasis or infiltrate. ASSESSMENT: 1. Status post embolization for splenic bleed. 2. Recent nephrectomy. 3. Acute kidney injury, likely secondary to contrast-induced nephropathy, improving. 4. Shortness of breath. 5. Anemia. PLAN: PT and OT will be working with the patient. I spoke with Case Management to work on placement for rehab on discharge. It looks like referral was sent to [facility]. The patient's hemoglobin decreased to 7.8 from 7.4 before 1 unit yesterday. We will transfuse 1 more unit today and continue to monitor with morning H and H and clinical signs. Continue to hold hydrochlorothiazide, given the patient's RADHA. Continue gentle fluids at 50 mL an hour. Encourage the patient to continue p.o. hydration. Encourage use of incentive spirometer and Acapella. Dr. Ralph saw this patient on rounds with me. Plan was discussed with him and he agrees with the above documentation and plan. Job ID: [id number] [facility]
[2020-03-09 16:22] VITALS: BP 134/72; TEMP 98.8
[2020-03-09] MEDS ORDERED: Acthib 0.5 ML VIAL IM ONE (17:00)
[2020-03-09] MEDS ORDERED: Meningococcal Vaccine 0.5ML VIAL (MENACTRA) IM ONE (17:00)
[2020-03-09] MEDS ORDERED: Prevnar 13-Val Conj/PF 0.5 ML SYRINGE IM ONE (17:00)
--- NOTE | 2020-03-09 20:19 | PRG ---
DATE OF SERVICE: 03/09/2020 SUBJECTIVE: The patient was seen this morning during rounds. He was sitting up in the chair with no signs of acute distress. He reported his pain was well controlled. He is tolerating his diet. Gard[place] is in place with yellow urine in bag. OBJECTIVE: VITAL SIGNS: Temperature 97.6, pulse 100, respirations 20, oxygen saturation 95% on room air, blood pressure 125/75. GENERAL: Well-appearing elderly male, sitting up in chair with no signs of acute distress. PULMONARY: Equal chest rise and fall. No signs of acute respiratory distress. CARDIAC: Regular rate and rhythm. GASTROINTESTINAL: Abdomen is soft, nontender, and nondistended. GENITOURINARY: Garduno is in place with yellow urine in bag. EXTREMITIES: 2+ pulses in all extremities. Gross motor and sensation are intact. No significant swelling noted. NEUROLOGIC: GCS is 15. LABORATORY FINDINGS: White count 17.8, hemoglobin 8.7, hematocrit 26.2, platelets 294. Sodium 136, potassium 4.4, chloride 102, bicarb 25, BUN 27, creatinine 1.14, glucose 107, phosphorus 2.7, magnesium 1.9. DIAGNOSTIC FINDINGS: There are no new diagnostic findings to discuss. ASSESSMENT: 1. Postoperative day #4, status post angioembolization of the spleen, status post splenic laceration. 2. Superficial abdominal wall abscess, Escherichia coli. 3. Acute kidney injury, resolved. 4. History of coronary artery disease, hypertension, and kidney mass. PLAN: Continue current diet and pain regimen. Continue physical and occupational therapy. We have discontinued the [place] if he can pee 2 times without any postvoid residual. We will discharge him home. He is to receive a splenectomy vaccine today. Job ID: [id number]
--- NOTE | 2020-03-09 20:36 | DIS ---
DATE OF ADMISSION: 03/05/2020 DATE OF DISCHARGE: 03/09/2020 ADMISSION DIAGNOSES: 1. Splenic laceration. 2. Abdominal wall skin abscess. 3. Acute kidney injury. DISCHARGE DIAGNOSES: 1. Splenic laceration. 2. Abdominal wall skin abscess. 3. Acute kidney injury. CONSULTING PHYSICIAN: Dr. Rodriguez of Cardiovascular Surgery. PROCEDURES: The patient went to the OR on March 07, 2020, and had a splenic angio embolization with Dr. Rodriguez. HOSPITAL COURSE: The patient is an 79-year-old male, presented to the emergency department about 10 days after he had a nephrectomy with hypotension. The patient was found to be anemic as well. He received blood products and was evaluated and found to have a splenic laceration. He was taken to the OR by Dr. Rodriguez and had a splenic angio embolization. He was admitted to the hospital and did receive blood products previously. He remained hemodynamically stable. He was later discharged when his pain was well controlled. He was tolerating a regular diet, ambulating without difficulty, and voiding without issues. DISCHARGE DISPOSITION: Home. DISCHARGE CONDITION: Satisfactory. PHYSICAL EXAMINATION: VITAL SIGNS: Temperature 97.6, pulse 100, respirations 20, oxygen saturation 95% on room air, blood pressure 125/75. GENERAL: Well-appearing elderly male, sitting up in a chair with no signs of acute distress. PULMONARY: Equal chest rise and fall. No signs of acute respiratory distress. CARDIAC: Regular rate and rhythm. GI: Abdomen is soft, nontender, nondistended. EXTREMITIES: 2+ pulses in all extremities. NEUROLOGIC: GCS is 15. DISCHARGE INSTRUCTIONS: The patient was discharged home. Activity as tolerated. Regular diet. No therapy needs. He will go home with an incentive spirometer. DISCHARGE MEDICATIONS: Include; 1. . 2. Xanax. 3. Norvasc. 4. Vitamin C. 5. Astelin. 6. Cipro for 7 more days. 7. Ferrous sulfate. 8. Hydrochlorothiazide. 9. Singulair. 10. MiraLAX. FOLLOWUP APPOINTMENTS: The patient was scheduled to follow up with Dr. Ralph on March 30 at 10:30 a.m., however, we will change that appointment to March 14, 2020. We plan to call the patient on Friday morning and tell him of the change in his appointment. He will hold his aspirin and Plavix until followup with Dr. Ralph in clinic. This is a summary of the patient's hospitalization. For full details, please see his medical record in its entirety. The patient was seen and evaluated by Dr. Ralph and myself in the morning of discharge. The [place] prescription monitoring program was accessed, and it was deemed appropriate for the patient to be discharged on narcotics that was used to control his pain while he was inpatient. Job ID: [id number]
[2020-03-10] MEDS ORDERED: Tamsulosin HCl 0.4 MG CAP PO SCH (09:00)
--- NOTE | 2020-03-11 16:27 | EKG ---
Test Reason : SOB Blood Pressure : / mmHG Vent. Rate : 095 BPM Atrial Rate : 095 BPM P-R Int : 102 ms QRS Dur : 082 ms QT Int : 346 ms P-R-T Axes : -11 001 047 degrees QTc Int : 434 ms Sinus rhythm with short MA with occasional , and consecutive Premature ventricular complexes Abnormal ECG Confirmed by JUAN JOSE SMALL M.D. ([id number]), editor producer MARGARITA ARSHAD ([id number]) on 03/11/2020 4:27:31 PM Referred By: Confirmed By:JUAN JOSE SMALL M.D.
== END 2020-03-09 18:50 | disposition home or self-care (01) | DRG 987 ==
LOC: ERS 23:39 → CCL 03-05 02:33 → CCU 03-05 03:19 → SURG B 03-05 20:07
PROVIDERS: ADMIT Surgery; ATTEND Surgery
PROC: 04L43DZ Occlusion of Splenic Artery with Intraluminal Device, Percutaneous Approach (ICD-10-PCS; principal; 2020-03-05)
PROC: B4101ZZ Fluoroscopy of Abdominal Aorta using Low Osmolar Contrast (ICD-10-PCS; 2020-03-05)
PROC: B4121ZZ Fluoroscopy of Hepatic Artery using Low Osmolar Contrast (ICD-10-PCS; 2020-03-05)
PROC: B4131ZZ Fluoroscopy of Splenic Arteries using Low Osmolar Contrast (ICD-10-PCS; 2020-03-05)
PROC: 0H97XZZ Drainage of Abdomen Skin, External Approach (ICD-10-PCS; 2020-03-05)
PROC: 30233L1 Transfusion of Nonautologous Fresh Plasma into Peripheral Vein, Percutaneous Approach (ICD-10-PCS; 2020-03-05)
PROC: 30233N1 Transfusion of Nonautologous Red Blood Cells into Peripheral Vein, Percutaneous Approach (ICD-10-PCS; 2020-03-05)
DX: D73.5 Infarction of spleen (principal); K66.1 Hemoperitoneum; R57.8 Other shock; N17.9 Acute kidney failure, unspecified; J98.11 Atelectasis; L02.211 Cutaneous abscess of abdominal wall; Z20.828 Contact with and (suspected) exposure to other viral communicable diseases; N14.1 Nephropathy induced by other drugs, medicaments and biological substances; T50.8X5A Adverse effect of diagnostic agents, initial encounter; I10 Essential (primary) hypertension; D64.9 Anemia, unspecified; I25.10 Atherosclerotic heart disease of native coronary artery without angina pectoris; X58.XXXA Exposure to other specified factors, initial encounter; B96.20 Unspecified Escherichia coli [E. coli] as the cause of diseases classified elsewhere; Z90.49 Acquired absence of other specified parts of digestive tract; Z98.890 Other specified postprocedural states; Z95.5 Presence of coronary angioplasty implant and graft; Z90.5 Acquired absence of kidney; Z98.42 Cataract extraction status, left eye; Z98.41 Cataract extraction status, right eye
CPT/HCPCS: 0240U; 36245; 36415; 36430; 37244; 51702; 70450; 71045; 71046; 72125; 74177; 80048; 80053; 81003; 83605; 83735; 83880; 84100; 85025; 86850; 86900; 86901; 87040; 87070; 87086; 87186; 87205; 90471; 90648; 90670; 90733; 93005; 94640; 96365; 96366; 96375; G0009; G0390; J0692; J1940; J2270; J2405; J3010; J3370; J3475; J3490; J7070; J7620; P9016; P9048; Q9967; S0028

== ENCOUNTER 2020-04-28 17:06 | Emergency (ER) | payer MEDICARE, OTHER ==
[2020-04-28 17:43] LABS: #Eosinphils 0.3 thou/uL (0.0-0.7); #Lymphocytes 1.9 thou/uL (1.20-3.40); #Monocytes 1.4 thou/uL (0.11-0.59); #Neutrophils 7.6 thou/uL (1.40-6.50); %Basophils 0.3 % (0.0-1.0); %Eosinophils 2.4 % (0.0-10.0); %Lymphocytes 16.9 % (21.0-51.0); %Monocytes 12.7 % (0.0-10.0); %Neutrophils 67.6 % (42.0-75.0); Hemoglobin 14.2 g/dL (14.0-18.0); Mean Corpuscular HGB CONC 32.7 g/dL (32.0-36.0); Mean Corpuscular Hemoglobin 34.4 pg (27.0-31.0); Mean Platelet Volume 8.6 fL (7.4-10.4); Platelet Count 351 thou/uL (130-400); RBC Distribution Width 16.8 % (11.5-14.5); Red Blood Cell (RBC) Count 4.14 mill/uL (4.70-6.10); White Blood Cell (WBC) Count 11.2 thou/uL (4.8-10.8)
[2020-04-28 18:12] LABS: ALT (SGPT) 17 U/L (8-55); AST (SGOT) 21 U/L (5-34); Albumin 3.8 g/dL (3.4-4.8); Alkaline Phosphatase 122 U/L (40-110); Anion Gap 17 mmol/L (10-20); BUN (Urea Nitrogen) 24 mg/dL (8.4-25.7); Bilirubin, Total 0.4 mg/dL (0.2-1.2); Calc. Creatinine Clearance 0 mL/min (70-130); Calcium 9.1 mg/dL (7.8-10.44); Carbon Dioxide 25 mmol/L (23-31); Chloride 101 mmol/L (98-107); Globulin 3.7 g/dL (2.4-3.5); Glucose 87 mg/dL (83-110); Potassium 4.5 mmol/L (3.5-5.1); Protein, Total 7.5 g/dL (5.8-8.1); Sodium 138 mmol/L (136-145)
== END 2020-04-28 22:08 | disposition home or self-care (01) ==
LOC: ERS 17:06
DX: K64.4 Residual hemorrhoidal skin tags (principal); I10 Essential (primary) hypertension; Z79.82 Long term (current) use of aspirin; Z79.899 Other long term (current) drug therapy
CPT/HCPCS: 36415; 80053; 82274; 85025; 86850; 86900; 86901; 99283

== ENCOUNTER 2020-12-18 18:04 | Emergency (ER) | payer MEDICARE, OTHER ==
[2020-12-18 19:19] LABS: #Eosinphils 0.2 thou/uL (0.0-0.7); #Lymphocytes 1.2 thou/uL (1.20-3.40); #Neutrophils 6.3 thou/uL (1.40-6.50); %Basophils 0.1 % (0.0-1.0); %Eosinophils 2.2 % (0.0-10.0); %Lymphocytes 13.5 % (21.0-51.0); %Monocytes 11.5 % (0.0-10.0); %Neutrophils 72.7 % (42.0-75.0); Mean Corpuscular HGB CONC 34.6 g/dL (32.0-36.0); Mean Corpuscular Hemoglobin 36.7 pg (27.0-31.0); Mean Platelet Volume 9.2 fL (7.4-10.4); Platelet Count 232 thou/uL (130-400); RBC Distribution Width 11.7 % (11.5-14.5); Red Blood Cell (RBC) Count 4.63 mill/uL (4.70-6.10); White Blood Cell (WBC) Count 8.6 thou/uL (4.8-10.8)
[2020-12-18 19:26] LABS: INR-International Normal Ratio 0.9; PTT 32.6 sec (22.9-36.1); Prothrombin Time 12.3 sec (12.0-14.7)
[2020-12-18 19:33] LABS: ALT (SGPT) 80 U/L (8-55); AST (SGOT) 46 U/L (5-34); Alkaline Phosphatase 102 U/L (40-110); Anion Gap 14 mmol/L (10-20); BUN (Urea Nitrogen) 39 mg/dL (8.4-25.7); Bilirubin, Total 0.4 mg/dL (0.2-1.2); Calc. Creatinine Clearance 0 mL/min (70-130); Calcium 9.3 mg/dL (7.8-10.44); Carbon Dioxide 26 mmol/L (23-31); Chloride 102 mmol/L (98-107); Globulin 2.9 g/dL (2.4-3.5); Glucose 112 mg/dL (83-110); Potassium 4.2 mmol/L (3.5-5.1); Protein, Total 6.9 g/dL (5.8-8.1); Sodium 138 mmol/L (136-145)
[2020-12-18 19:37] LABS: MDiff Complete? YES; Macrocytosis SLIGHT = 6-15 cells (100X) (0-5/hpf); Platelet Morphology Comment Appears Adequate
== END 2020-12-18 19:52 | disposition home or self-care (01) ==
LOC: ERS 18:04
DX: K06.8 Other specified disorders of gingiva and edentulous alveolar ridge (principal); I10 Essential (primary) hypertension; Z79.899 Other long term (current) drug therapy
CPT/HCPCS: 36415; 80053; 85025; 85610; 85730; 99283

== ENCOUNTER 2022-06-21 09:01 | Outpatient (CLI) | payer MEDICARE, OTHER ==
[2022-06-21] MEDS ORDERED: Iopamidol 370 76% 100 ML VIAL ONE (14:13)
== END 2022-06-21 09:02 | disposition home or self-care (01) ==
LOC: BICCT 09:01
PROVIDERS: ATTEND Urology
DX: C67.9 Malignant neoplasm of bladder, unspecified (principal); R31.0 Gross hematuria; N28.1 Cyst of kidney, acquired; E27.9 Disorder of adrenal gland, unspecified; Z90.5 Acquired absence of kidney
CPT/HCPCS: 74178; 82565; Q9967

== ENCOUNTER 2023-04-09 12:01 | Emergency (ER) | payer MEDICARE, OTHER | END 2023-04-09 16:28 | disposition home or self-care (01) | LOC: ERS 12:01 | DX: S09.90XA Unspecified injury of head, initial encounter (principal); S00.11XA Contusion of right eyelid and periocular area, initial encounter; S00.81XA Abrasion of other part of head, initial encounter; I10 Essential (primary) hypertension; W01.119A Fall on same level from slipping, tripping and stumbling with subsequent striking against unspecified sharp object, initial encounter; Z79.899 Other long term (current) drug therapy; Z79.82 Long term (current) use of aspirin | CPT/HCPCS: 70450; 70486; 72125 ==

== ENCOUNTER 2025-03-19 18:43 | Inpatient (IN) | payer MEDICARE ==
[~2025-03-19 18:43] MED LIST: Iopamidol-370 76% 500 ML MDV (1 ML CHARGE) ONE
[2025-03-19 19:10] LABS: #Basophils Less than 0.03 10x3/uL (0.0-0.2); #Eosinophils 0.27 10x3/uL (0.0-0.7); #Monocytes 1.09 10x3/uL (0.11-0.59); #Neutrophils 6.74 10x3/uL (1.40-6.50); %Basophils 0.1 % (0.0-1.0); %Eosinophils 2.8 % (0.0-10.0); %Lymphocytes 15.6 % (21.0-51.0); %Monocytes 11.3 % (0.0-10.0); %Neutrophils 69.9 % (42.0-75.0); Hematocrit 34.5 % (42.0-52.0); Hemoglobin 11.0 g/dL (14.0-18.0); Mean Corpuscular Hemoglobin 32.1 pg (27.0-31.0); Mean Corpuscular Volume 100.6 fL (78.0-98.0); Platelet Count 328 10x3/uL (130-400); Red Blood Cell (RBC) Count 3.43 mill/uL (4.70-6.10); White Blood Cell (WBC) Count 9.64 10x3/uL (4.8-10.8)
[2025-03-19 19:23] LABS: ALT (SGPT) 60 U/L (Less than 45); AST (SGOT) 73 U/L (11-34); Albumin 3.5 g/dL (3.1-4.5); Alkaline Phosphatase 105 U/L (40-110); Anion Gap 18 mmol/L (10-20); BUN (Urea Nitrogen) 27 mg/dL (8.4-25.7); Bilirubin, Total 0.2 mg/dL (0.3-1.2); Calc. Creatinine Clearance 0 mL/min (70-130); Calcium 9.1 mg/dL (7.8-10.44); Carbon Dioxide 29 mmol/L (23-31); Chloride 104 mmol/L (98-107); Globulin 2.8 g/dL (2.4-3.5); Glucose 102 mg/dL (83-110); Potassium 4.2 mmol/L (3.5-5.1); Sodium 147 mmol/L (136-145)
[2025-03-19] MEDS ORDERED: Nitroglycerin 2% Ointment 1 INCH/1 GM Packet ONE (19:37)
[2025-03-19] MEDS ORDERED: Furosemide 40 MG (4 mL) VIAL ONE (19:37)
[2025-03-19] MEDS ORDERED: Melatonin 3 MG TAB PO PRN (23:51)
[2025-03-19] MEDS ORDERED: Acetaminophen 325 MG TAB PO PRN (23:51)
[2025-03-19] MEDS ORDERED: Ondansetron PF 4 MG/2 ML Vial IVP PRN (23:51)
[2025-03-20] MEDS: cefTRIAXone\\ROCEPHIN 1 GM in Sodium Chloride 0.9% 100 ML IVPB SCH (02:50)
[2025-03-20] MEDS: Azithromycin 500 MG in Sodium Chloride 0.9% 250 ML 250 ML IVPB SCH (02:56)
[2025-03-20 04:37] LABS: #Basophils Less than 0.03 10x3/uL (0.0-0.2); #Eosinophils 0.23 10x3/uL (0.0-0.7); #Monocytes 1.16 10x3/uL (0.11-0.59); #Neutrophils 7.18 10x3/uL (1.40-6.50); %Basophils 0.2 % (0.0-1.0); %Eosinophils 2.3 % (0.0-10.0); %Lymphocytes 14.0 % (21.0-51.0); %Monocytes 11.6 % (0.0-10.0); %Neutrophils 71.6 % (42.0-75.0); Hematocrit 33.0 % (42.0-52.0); Hemoglobin 10.4 g/dL (14.0-18.0); Mean Corpuscular Hemoglobin 32.1 pg (27.0-31.0); Mean Corpuscular Volume 101.9 fL (78.0-98.0); Platelet Count 323 10x3/uL (130-400); Red Blood Cell (RBC) Count 3.24 mill/uL (4.70-6.10); White Blood Cell (WBC) Count 10.02 10x3/uL (4.8-10.8)
[2025-03-20 04:58] VITALS: BMI 319913.1
[2025-03-20 05:09] LABS: Anion Gap 14 mmol/L (10-20); BUN (Urea Nitrogen) 26 mg/dL (8.4-25.7); Calc. Creatinine Clearance 70 mL/min (70-130); Calcium 8.8 mg/dL (7.8-10.44); Carbon Dioxide 29 mmol/L (23-31); Chloride 102 mmol/L (98-107); Glucose 109 mg/dL (83-110); Potassium 3.7 mmol/L (3.5-5.1); Sodium 141 mmol/L (136-145)
[2025-03-20] MEDS: predniSONE 20 MG TAB PO SCH (10:10)
[2025-03-20] MEDS: Ezetimibe 10 MG TAB PO SCH (10:10)
[2025-03-20] MEDS ORDERED: GUAIFENESIN SF SOLN 200 MG/10 ML UDCUP PO PRN (13:39)
[2025-03-20] MEDS: Benzonatate 100 MG CAP PO SCH (15:25)
[2025-03-20] MEDS: Azelastine 137 MCG/NASAL Spray 30 ML NS SCH (15:25)
[2025-03-20] MEDS: Multivitamin w/Zinc Stress 1 TAB PO SCH (21:15)
[2025-03-20] MEDS: Multivit, Therapeutic 1 TAB PO SCH (21:16)
[2025-03-20] MEDS: Metoprolol Succinate XL 25 MG ER.TAB PO SCH (21:16)
[2025-03-21 04:54] LABS: #Basophils Less than 0.03 10x3/uL (0.0-0.2); #Eosinophils Less than 0.03 10x3/uL (0.0-0.7); #Monocytes 0.99 10x3/uL (0.11-0.59); #Neutrophils 7.03 10x3/uL (1.40-6.50); %Basophils 0.1 % (0.0-1.0); %Eosinophils 0.1 % (0.0-10.0); %Lymphocytes 12.6 % (21.0-51.0); %Monocytes 10.7 % (0.0-10.0); %Neutrophils 76.2 % (42.0-75.0); Hematocrit 30.8 % (42.0-52.0); Hemoglobin 9.5 g/dL (14.0-18.0); Mean Corpuscular Hemoglobin 31.9 pg (27.0-31.0); Mean Corpuscular Volume 103.4 fL (78.0-98.0); Platelet Count 294 10x3/uL (130-400); Red Blood Cell (RBC) Count 2.98 mill/uL (4.70-6.10); White Blood Cell (WBC) Count 9.23 10x3/uL (4.8-10.8)
[2025-03-21 05:15] LABS: Anion Gap 12 mmol/L (10-20); BUN (Urea Nitrogen) 29 mg/dL (8.4-25.7); Calc. Creatinine Clearance 82 mL/min (70-130); Calcium 8.6 mg/dL (7.8-10.44); Carbon Dioxide 28 mmol/L (23-31); Chloride 102 mmol/L (98-107); Glucose 92 mg/dL (83-110); Potassium 3.9 mmol/L (3.5-5.1); Sodium 138 mmol/L (136-145)
[2025-03-21] MEDS: predniSONE 20 MG TAB PO SCH (08:26)
[2025-03-21] MEDS: Azelastine 137 MCG/NASAL Spray 30 ML NS SCH (08:27)
[2025-03-21 12:02] VITALS: TEMP 97.6
[2025-03-21 17:27] VITALS: BP 148/70
== END 2025-03-21 18:21 | disposition home or self-care (01) | DRG 189 ==
LOC: ERS 18:43 → 2NO 23:02 → OBSVTOIN 03-21 09:47
PROVIDERS: ADMIT Student in an Organized Health Care Education/Training Program; ATTEND Hospitalist
DX: J96.01 Acute respiratory failure with hypoxia (principal); J20.9 Acute bronchitis, unspecified; I25.10 Atherosclerotic heart disease of native coronary artery without angina pectoris; G47.33 Obstructive sleep apnea (adult) (pediatric); I10 Essential (primary) hypertension; E78.5 Hyperlipidemia, unspecified; G25.81 Restless legs syndrome; Z98.49 Cataract extraction status, unspecified eye; Z98.890 Other specified postprocedural states; Z90.49 Acquired absence of other specified parts of digestive tract; Z90.81 Acquired absence of spleen; Z96.653 Presence of artificial knee joint, bilateral; Z95.5 Presence of coronary angioplasty implant and graft; Z90.5 Acquired absence of kidney; F10.90 Alcohol use, unspecified, uncomplicated; Z87.891 Personal history of nicotine dependence; Z79.899 Other long term (current) drug therapy
CPT/HCPCS: 36415; 71045; 71275; 80048; 80053; 83880; 84484; 85025; 87428; 87633; 93005; 93306; 94640; 94760; 96375; 96376; G0378; J0456; J0696; J1940; J7050; J7512; Q9967

== ENCOUNTER 2025-03-23 09:14 | Emergency (ER) | payer MEDICARE | END 2025-03-23 10:48 | disposition home or self-care (01) | LOC: ERS 09:14 | DX: R09.02 Hypoxemia (principal); I10 Essential (primary) hypertension; I25.10 Atherosclerotic heart disease of native coronary artery without angina pectoris; E78.5 Hyperlipidemia, unspecified; G25.81 Restless legs syndrome; G47.33 Obstructive sleep apnea (adult) (pediatric); Z95.5 Presence of coronary angioplasty implant and graft | CPT/HCPCS: 71045; 93005 ==